=== PATIENT | female | born 1945 | race Caucasian/White ===

== ENCOUNTER 2021-01-16 10:43 | Emergency (ER) | payer OTHER ==
[~2021-01-16] VITALS: Ht 160 cm; Wt 77.1 kg
[2021-01-16] MEDS ORDERED: SODIUM CHLORIDE 0.9% 500 ML IVB ONE (11:00)
[2021-01-16 11:05] LABS: Basophils # (auto) 0.1 10 ^3/uL (0-0.2); Basophils % (auto) 1.2 % (0.0-2.0); Eosinophils # (auto) 0.3 10 ^3/uL (0-0.8); Eosinophils % (auto) 2.7 % (0.0-7.0); Hematocrit 41.2 % (36.0-46.0); Hemoglobin 14.2 g/dL (12.2-16.2); Lymphocytes # (auto) 1.7 10 ^3/uL (0.4-5.4); Mean Corpuscular Hemoglobin 31.3 pg (28.0-32.0); Mean Corpuscular Hgb Conc. 34.5 g/dL (32.0-36.0); Mean Corpuscular Volume 90.8 fL (80.0-100.0); Monocytes # (auto) 0.6 10 ^3/uL (0-1.3); Neutrophils # (auto) 7.9 10 ^3/uL (1.6-8.6); Neutrophils % (auto) 74.1 % (37.0-80.0); Nucleated Red Blood Cells % 0.1 %; Platelet Count (auto) 322 10^3/uL (140-450); Red Blood Cells 4.54 10^6/uL (4.0-5.20); Red Cell Distribution Width 14.4 % (11.8-14.3); White Blood Cell 10.7 10^3/uL (4.4-10.8)
[2021-01-16 11:22] LABS: Albumin 3.6 g/dL (3.4-5.0); Anion Gap 14 (5-15); Blood Alcohol < 3.0 mg/dL (0-5); Blood Urea Nitrogen 18 mg/dL (7-18); Calcium 8.9 mg/dL (8.5-10.1); Carbon Dioxide 18 mmol/L (21-32); Chloride 106 mmol/L (98-107); Glucose 205 mg/dL (74-106); Magnesium 1.8 mg/dL (1.6-2.6); Potassium 3.5 mmol/L (3.5-5.1); Sodium 138 mmol/L (136-145)
[2021-01-16 11:27] LABS: Alanine Aminotransferase 13 U/L (13-56); Alkaline Phosphatase 67 U/L (45-117); Aspartate Aminotransferase 14 U/L (15-37); BUN/Creatinine Ratio 21.4; Bilirubin, Total 0.4 mg/dL (0.2-1.0); GFR African American 85 mL/min; GFR Non-African American 70 mL/min; Total Protein 7.3 g/dL (6.4-8.2)
[2021-01-16 13:08] LABS: Urine Bacteria NONE SEEN /hpf (None Seen); Urine Blood Negative /uL (Negative); Urine Specific Gravity 1.027 (1.001-1.035); Urine WBC 22 /hpf (0 - 5)
[2021-01-16 13:26] LABS: Alcohol, Urine < 3.0 mg/dL (0-10); Amphetamine Screen, Urine NEGATIVE (NEGATIVE); Barbiturate Scree,Urine NEGATIVE (NEGATIVE); Benzodiazephine Screen, Urine NEGATIVE (NEGATIVE); Cannabinoid Screen, Urine NEGATIVE (NEGATIVE); Cocaine Screen, Urine NEGATIVE (NEGATIVE); Opiate Scree,Urine POSITIVE (NEGATIVE); Phencyclidine Screen, Urine NEGATIVE (NEGATIVE)
[2021-01-16] MEDS ORDERED: PIOG1TAB36 PO (13:31)
[2021-01-16] MEDS ORDERED: SIMV-13 PO (13:31)
[2021-01-16] MEDS ORDERED: VENL150C58 PO (13:31)
[2021-01-16] MEDS ORDERED: VENL75CA78 PO (13:31)
[2021-01-16] MEDS ORDERED: HYDR-4072 (13:31)
[2021-01-16] MEDS ORDERED: GABA400C11 PO (13:31)
[2021-01-16] MEDS ORDERED: SITA100T7 PO (13:31)
[2021-01-16] MEDS ORDERED: AMLO-496 PO (13:31)
[2021-01-16] MEDS ORDERED: HYDR12.55 PO (13:31)
[2021-01-16] MEDS ORDERED: METF-372 PO (13:31)
[2021-01-16] MEDS ORDERED: CIPR500T4 PO (13:31)
[2021-01-16 14:40] VITALS: BP 155/87
== END 2021-01-16 15:10 | disposition home or self-care (01) ==
LOC: EDBD 10:43 → ER 10:43
DX: R41.82 Altered mental status, unspecified (principal); N39.0 Urinary tract infection, site not specified; I10 Essential (primary) hypertension; E11.9 Type 2 diabetes mellitus without complications; I25.2 Old myocardial infarction; Z90.49 Acquired absence of other specified parts of digestive tract; Z90.710 Acquired absence of both cervix and uterus
CPT/HCPCS: 36415; 70450; 71045; 80053; 80307; 80320; 81001; 83735; 84484; 85025; 93005; 96360; 96361; 99285; J7040

== ENCOUNTER 2022-08-09 11:06 | Inpatient (IN) | payer OTHER ==
[~2022-08-09] VITALS: Ht 157.5 cm; Wt 93.5 kg
[~2022-08-09 11:06] MED LIST: AMLO-496 PO; CIPR500T4 PO; GABA400C11 PO; HYDR-4072; HYDR12.55 PO; METF-372 PO; PIOG1TAB36 PO; SIMV-13 PO; SITA100T7 PO; VENL150C58 PO; VENL75CA78 PO
[2022-08-09 12:08] LABS: Basophils # (auto) 0.1 10 ^3/uL (0-0.2); Basophils % (auto) 0.6 % (0.0-2.0); Eosinophils # (auto) 0.2 10 ^3/uL (0-0.8); Eosinophils % (auto) 1.2 % (0.0-7.0); Hematocrit 38.8 % (36.0-46.0); Hemoglobin 13.2 g/dL (12.2-16.2); Lymphocytes # (auto) 1.7 10 ^3/uL (0.4-5.4); Lymphocytes % (auto) 8.3 % (10.0-50.0); Mean Corpuscular Hemoglobin 31.9 pg (28.0-32.0); Mean Corpuscular Hgb Conc. 34.1 g/dL (32.0-36.0); Mean Corpuscular Volume 93.7 fL (80.0-100.0); Monocytes # (auto) 1.2 10 ^3/uL (0-1.3); Monocytes % (auto) 5.9 % (0.0-12.0); Neutrophils # (auto) 17.3 10 ^3/uL (1.6-8.6); Nucleated Red Blood Cells % 0.1 %; Red Blood Cells 4.14 10^6/uL (4.0-5.20); Red Cell Distribution Width 13.6 % (11.8-14.3); White Blood Cell 20.5 10^3/uL (4.4-10.8)
[2022-08-09 12:09] LABS: Albumin 3.5 g/dL (3.4-5.0); Calcium 8.9 mg/dL (8.5-10.1); Potassium 4.3 mmol/L (3.5-5.1)
[2022-08-09 12:12] LABS: Bilirubin, Total 0.6 mg/dL (0.2-1.0); Total Protein 6.4 g/dL (6.4-8.2)
[2022-08-09 12:21] LABS: INR 0.99 (0.9-1.15); Partial Thromboplastin Time 27.3 sec (24.6-33.4)
[2022-08-09] MEDS ORDERED: MORPHINE SULFATE 4 MG/ML SYR/VIAL IV ONE (13:45)
[2022-08-09] MEDS ORDERED: ONDANSETRON HCL 4 MG/2 ML VIAL IV ONE (13:45)
[2022-08-09] MEDS ORDERED: DEXTROSE (50%) 50ML SYRG IV PRN (17:00)
[2022-08-09] MEDS ORDERED: ONDANSETRON HCL 4 MG/2 ML VIAL IV PRN (17:00)
[2022-08-09] MEDS ORDERED: DOCUSATE SOD 100 MG CAP PO PRN (17:00)
[2022-08-09] MEDS: ACCU-CHEK COMFORT CURVE STRIP VI SCH ×2 (17:46→21:58)
[2022-08-09] MEDS: InsuLIN REG 1unit/0.01ml Soln (100units/ml) SC SCH ×2 (17:59→21:58)
[2022-08-09] MEDS: SODIUM CHLORIDE 0.9% 1,000 ML IV SCH (18:20)
[2022-08-09] MEDS: MORPHINE SULFATE INJ 2 MG/ml SYRG IV PRN (20:30)
[2022-08-09 21:37] LABS: Urine Bacteria NONE SEEN /hpf (None Seen); Urine Blood Negative /uL (Negative); Urine Specific Gravity 1.027 (1.001-1.035); Urine WBC 1 /hpf (0 - 5)
[2022-08-10] VITALS (9 sets, daily range): BP systolic 119–144; BP diastolic 50–73
[2022-08-10] MEDS: MORPHINE SULFATE INJ 2 MG/ml SYRG IV PRN ×2 (02:11→11:15)
[2022-08-10 05:34] LABS: Basophils # (auto) 0.1 10 ^3/uL (0-0.2); Basophils % (auto) 0.9 % (0.0-2.0); Eosinophils # (auto) 0.1 10 ^3/uL (0-0.8); Eosinophils % (auto) 0.5 % (0.0-7.0); Hematocrit 34.9 % (36.0-46.0); Hemoglobin 11.6 g/dL (12.2-16.2); Lymphocytes # (auto) 2.3 10 ^3/uL (0.4-5.4); Lymphocytes % (auto) 13.2 % (10.0-50.0); Mean Corpuscular Hemoglobin 31.3 pg (28.0-32.0); Mean Corpuscular Hgb Conc. 33.4 g/dL (32.0-36.0); Mean Corpuscular Volume 93.7 fL (80.0-100.0); Monocytes # (auto) 1.4 10 ^3/uL (0-1.3); Monocytes % (auto) 7.9 % (0.0-12.0); Neutrophils # (auto) 13.3 10 ^3/uL (1.6-8.6); Neutrophils % (auto) 77.5 % (37.0-80.0); Red Blood Cells 3.72 10^6/uL (4.0-5.20); Red Cell Distribution Width 13.5 % (11.8-14.3); White Blood Cell 17.2 10^3/uL (4.4-10.8)
[2022-08-10 05:44] LABS: Albumin 3.2 g/dL (3.4-5.0); BUN/Creatinine Ratio 22.7; Calcium 8.3 mg/dL (8.5-10.1); Potassium 3.9 mmol/L (3.5-5.1)
[2022-08-10 05:47] LABS: Bilirubin, Total 0.6 mg/dL (0.2-1.0)
[2022-08-10] MEDS: InsuLIN REG 1unit/0.01ml Soln (100units/ml) SC SCH ×4 (06:06→22:00)
[2022-08-10] MEDS: ACCU-CHEK COMFORT CURVE STRIP VI SCH ×4 (06:06→22:00)
[2022-08-10] MEDS: levoFLOXacin 500MG 100 ML IV SCH (11:14)
[2022-08-10] MEDS: SODIUM CHLORIDE 0.9% 1,000 ML IV SCH (11:14)
[2022-08-10] MEDS: PANTOPRAZOLE 40 MG/10 ML VIAL INJ IV SCH (11:14)
[2022-08-10] MEDS: amLODIPine BESYLATE 5 MG TAB PO SCH (11:15)
[2022-08-10] MEDS ORDERED: IPRATROPIUM BROM 0.5 MG/2.5ML INH SOL NEB PRN (12:45)
[2022-08-10] MEDS ORDERED: ALBUTEROL SULF 2.5 MG/0.5ML(0.5%) NEB SOLN NEB PRN (12:45)
[2022-08-10] MEDS: LORazepam 2MG/ML-1ML VIAL IV PRN (14:13)
[2022-08-10] MEDS: HYDROmorphone HCL 2 MG/ML VL/or syr IV PRN ×2 (14:19→18:58)
[2022-08-10 14:47] LABS: Cholesterol 138 mg/dL (< 200); HDL Cholesterol 54 mg/dL (40-59); LDL Cholesterol 73 mg/dL (< 100); Triglycerides 140 mg/dL (< 150)
[2022-08-10] MEDS ORDERED: ACE650RS PR (16:29)
[2022-08-10] MEDS ORDERED: GLIM4TAB42 PO (16:29)
[2022-08-10] MEDS ORDERED: OXYB5TAB61 PO (16:29)
[2022-08-10] MEDS ORDERED: PIO30T PO (16:29)
[2022-08-10] MEDS ORDERED: CHOL20007 PO (16:29)
[2022-08-10] MEDS ORDERED: HYDR-3682 PO (16:29)
[2022-08-10] MEDS ORDERED: AMIO200T33 PO (16:29)
[2022-08-10] MEDS ORDERED: LEVO137T3 PO (16:29)
[2022-08-10] MEDS ORDERED: APIX5TAB PO (16:29)
[2022-08-10] MEDS ORDERED: MELO1TAB56 PO (16:29)
[2022-08-10] MEDS ORDERED: ACET-1079 PO (16:29)
[2022-08-10] MEDS ORDERED: [UNRECOGNIZED DRUG - CODE] PO (16:33)
[2022-08-11] VITALS (14 sets, daily range): BP systolic 121–166; BP diastolic 46–96
[2022-08-11] MEDS: SODIUM CHLORIDE 0.9% 1,000 ML IV SCH ×2 (00:30→11:27)
[2022-08-11] MEDS: HYDROmorphone HCL 2 MG/ML VL/or syr IV PRN ×2 (02:16→17:17)
[2022-08-11] MEDS: ACCU-CHEK COMFORT CURVE STRIP VI SCH ×4 (06:15→22:27)
[2022-08-11] MEDS: InsuLIN REG 1unit/0.01ml Soln (100units/ml) SC SCH ×4 (06:15→22:27)
[2022-08-11] MEDS ORDERED: ceFAZolin 1GM/50ML 100 ML IV ONE (09:46)
[2022-08-11] MEDS: PANTOPRAZOLE 40 MG/10 ML VIAL INJ IV SCH (09:51)
[2022-08-11] MEDS: amLODIPine BESYLATE 5 MG TAB PO SCH (09:51)
[2022-08-11] MEDS: levoFLOXacin 500MG 100 ML IV SCH (09:51)
[2022-08-11] MEDS ORDERED: TRANEXAMIC ACID 20 ML ONE (10:37)
[2022-08-11] MEDS ORDERED: BUPIVACAINE 0.5% P/F INJ 10 ML VIAL ONE (10:38)
[2022-08-11] MEDS ORDERED: MIDAZOLAM HCL 2MG/2ML 2ml VIAL (1mg/ml) ONE (11:10)
[2022-08-11] MEDS ORDERED: fentaNYL CITRATE 100 MCG/2 ML VL ONE (11:10)
[2022-08-11] MEDS ORDERED: VANCOMYCIN HCL 1000 MG VL ONE (12:36)
[2022-08-11] MEDS ORDERED: DexAMETHasone SOD PHOS 10MG/1ML VIAL INJ IV PRN (12:45)
[2022-08-11] MEDS ORDERED: NALOXONE HCL 0.4 MG/ML VIAL IV PRN (12:45)
[2022-08-11] MEDS ORDERED: NALBUPHINE HCL 10 MG/1ml INJECTION SUBCUT ONE (12:45)
[2022-08-11] MEDS ORDERED: HYDROmorphone HCL 2 MG/ML VL/or syr IV PRN (12:45)
[2022-08-11] MEDS ORDERED: ONDANSETRON HCL 4 MG/2 ML VIAL IV PRN (12:45)
[2022-08-11] MEDS ORDERED: PROPOFOL 10 MG/ML 20 ML IV ONE (13:14)
[2022-08-11] MEDS: ceFAZolin 2 GM in D5W 5% 100 ML IV SCH ×2 (14:00→22:23)
[2022-08-12] VITALS (19 sets, daily range): BP systolic 118–183; BP diastolic 58–82
[2022-08-12] MEDS: SODIUM CHLORIDE 0.9% 1,000 ML IV SCH (03:00)
[2022-08-12] MEDS: ceFAZolin 2 GM in D5W 5% 100 ML IV SCH (05:43)
[2022-08-12] MEDS: InsuLIN REG 1unit/0.01ml Soln (100units/ml) SC SCH ×4 (06:12→22:09)
[2022-08-12] MEDS: ACCU-CHEK COMFORT CURVE STRIP VI SCH ×4 (06:14→22:11)
[2022-08-12 07:43] LABS: Basophils # (auto) 0.1 10 ^3/uL (0-0.2); Basophils % (auto) 0.5 % (0.0-2.0); Eosinophils # (auto) 0.1 10 ^3/uL (0-0.8); Eosinophils % (auto) 0.4 % (0.0-7.0); Hematocrit 29.1 % (36.0-46.0); Hemoglobin 9.6 g/dL (12.2-16.2); Lymphocytes # (auto) 1.8 10 ^3/uL (0.4-5.4); Lymphocytes % (auto) 9.7 % (10.0-50.0); Mean Corpuscular Hemoglobin 31.2 pg (28.0-32.0); Mean Corpuscular Volume 94.8 fL (80.0-100.0); Monocytes # (auto) 1.3 10 ^3/uL (0-1.3); Monocytes % (auto) 6.9 % (0.0-12.0); Neutrophils # (auto) 15.6 10 ^3/uL (1.6-8.6); Neutrophils % (auto) 82.5 % (37.0-80.0); Red Blood Cells 3.07 10^6/uL (4.0-5.20); Red Cell Distribution Width 13.7 % (11.8-14.3); White Blood Cell 18.9 10^3/uL (4.4-10.8)
[2022-08-12 07:59] LABS: Albumin 2.7 g/dL (3.4-5.0); Calcium 8.6 mg/dL (8.5-10.1); Magnesium 1.7 mg/dL (1.6-2.6); Potassium 4.1 mmol/L (3.5-5.1)
[2022-08-12 08:04] LABS: Bilirubin, Total 0.8 mg/dL (0.2-1.0); Total Protein 5.7 g/dL (6.4-8.2)
[2022-08-12] MEDS: amLODIPine BESYLATE 5 MG TAB PO SCH (10:02)
[2022-08-12] MEDS: PANTOPRAZOLE 40 MG/10 ML VIAL INJ IV SCH (10:02)
[2022-08-12] MEDS: levoFLOXacin 500MG 100 ML IV SCH (10:03)
[2022-08-12] MEDS: HYDROmorphone HCL 2 MG/ML VL/or syr IV PRN ×3 (10:03→20:47)
[2022-08-12] MEDS ORDERED: ENOXAPARIN SOD 40 MG/0.4 ML SYRINGE SC ONE (11:15)
[2022-08-12] MEDS: HYDROcodone-ACET 5/325MG TAB PO PRN ×2 (13:25→23:54)
[2022-08-12] MEDS: DOCUSATE SOD 100 MG CAP PO SCH (22:04)
[2022-08-13] MEDS: HYDROmorphone HCL 2 MG/ML VL/or syr IV PRN ×3 (03:05→17:59)
[2022-08-13 05:04] VITALS: BP 136/62
[2022-08-13] MEDS: HYDROcodone-ACET 5/325MG TAB PO PRN ×2 (06:35→13:12)
[2022-08-13] MEDS: ACCU-CHEK COMFORT CURVE STRIP VI SCH ×4 (06:39→21:12)
[2022-08-13] MEDS: InsuLIN REG 1unit/0.01ml Soln (100units/ml) SC SCH ×4 (06:43→21:01)
[2022-08-13 06:44] LABS: Basophils # (auto) 0.1 10 ^3/uL (0-0.2); Basophils % (auto) 0.7 % (0.0-2.0); Eosinophils # (auto) 0.3 10 ^3/uL (0-0.8); Hematocrit 30.5 % (36.0-46.0); Hemoglobin 10.2 g/dL (12.2-16.2); Lymphocytes % (auto) 12.2 % (10.0-50.0); Mean Corpuscular Hemoglobin 31.6 pg (28.0-32.0); Mean Corpuscular Hgb Conc. 33.3 g/dL (32.0-36.0); Monocytes # (auto) 1.2 10 ^3/uL (0-1.3); Monocytes % (auto) 7.2 % (0.0-12.0); Neutrophils # (auto) 12.7 10 ^3/uL (1.6-8.6); Neutrophils % (auto) 77.9 % (37.0-80.0); Red Blood Cells 3.21 10^6/uL (4.0-5.20); Red Cell Distribution Width 13.7 % (11.8-14.3); White Blood Cell 16.3 10^3/uL (4.4-10.8)
[2022-08-13 07:12] LABS: Potassium 3.9 mmol/L (3.5-5.1)
[2022-08-13 07:15] LABS: BUN/Creatinine Ratio 15.8; Calcium 9.2 mg/dL (8.5-10.1)
[2022-08-13 09:24] VITALS: BP 142/50
[2022-08-13] MEDS ORDERED: LEVOTHYROXINE SODIUM 25 MCG TAB PO ONE (09:30)
[2022-08-13] MEDS ORDERED: GLIMEPIRIDE 2 MG TAB PO ONE (09:30)
[2022-08-13] MEDS ORDERED: metFORMIN HYDROCHLORIDE 500 MG TAB PO ONE (09:30)
[2022-08-13] MEDS: PANTOPRAZOLE 40 MG/10 ML VIAL INJ IV SCH (09:53)
[2022-08-13] MEDS: HCTZ 25 MG TAB PO SCH (09:55)
[2022-08-13] MEDS: DOCUSATE SOD 100 MG CAP PO SCH ×2 (09:56→21:11)
[2022-08-13] MEDS: LEVOTHYROXINE SODIUM 112 MCG TAB PO SCH (09:56)
[2022-08-13] MEDS: AMIODARONE HCL 200 MG TAB PO SCH (09:56)
[2022-08-13] MEDS: amLODIPine BESYLATE 5 MG TAB PO SCH (09:56)
[2022-08-13] MEDS: APIXABAN 5 MG TAB PO SCH ×2 (09:57→21:11)
[2022-08-13] MEDS: LEVOTHYROXINE SODIUM 25 MCG TAB PO SCH (09:57)
[2022-08-13] MEDS: VENLAFAXINE HCL 37.5mg XR cap PO SCH ×2 (09:57→21:11)
[2022-08-13] MEDS ORDERED: ENOXAPARIN SOD 40 MG/0.4 ML SYRINGE SC SCH (10:00)
[2022-08-13] MEDS ORDERED: LACTULOSE 20Gm/30ML SOLN PO ONE (11:00)
[2022-08-13 12:32] VITALS: BP 141/77
[2022-08-13] MEDS: LORazepam 2MG/ML-1ML VIAL IV PRN (13:12)
[2022-08-13] MEDS: GABAPENTIN 300 MG CAP PO SCH ×2 (13:13→21:12)
[2022-08-13 14:49] LABS: Hepatitis C Antibody Negative (Negative)
[2022-08-13 16:54] VITALS: BP 166/59
[2022-08-13] MEDS: metFORMIN HYDROCHLORIDE 500 MG TAB PO SCH (17:58)
[2022-08-13] MEDS: ATORVASTATIN 20 MG TAB PO SCH (21:11)
[2022-08-13 22:00] VITALS: BP_SYST 102; BP_DIAS 117; BP_DIAS 49
[2022-08-14 05:00] VITALS: BP 147/69
[2022-08-14] MEDS: GABAPENTIN 300 MG CAP PO SCH ×3 (06:24→21:41)
[2022-08-14] MEDS: GLIMEPIRIDE 2 MG TAB PO SCH (06:25)
[2022-08-14] MEDS: LEVOTHYROXINE SODIUM 112 MCG TAB PO SCH (06:25)
[2022-08-14] MEDS: InsuLIN REG 1unit/0.01ml Soln (100units/ml) SC SCH ×4 (06:25→21:49)
[2022-08-14] MEDS: ACCU-CHEK COMFORT CURVE STRIP VI SCH ×4 (06:26→21:49)
[2022-08-14] MEDS: LEVOTHYROXINE SODIUM 25 MCG TAB PO SCH (06:26)
[2022-08-14] MEDS ORDERED: LEVOTHYROXINE SODIUM 25 MCG TAB PO SCH (07:00)
[2022-08-14] MEDS: metFORMIN HYDROCHLORIDE 500 MG TAB PO SCH ×2 (08:10→16:53)
[2022-08-14] MEDS: VENLAFAXINE HCL 37.5mg XR cap PO SCH ×2 (08:11→21:41)
[2022-08-14] MEDS: AMIODARONE HCL 200 MG TAB PO SCH (08:11)
[2022-08-14] MEDS: APIXABAN 5 MG TAB PO SCH ×2 (08:11→21:41)
[2022-08-14] MEDS: DOCUSATE SOD 100 MG CAP PO SCH ×2 (08:11→21:41)
[2022-08-14] MEDS: PANTOPRAZOLE 40 MG/10 ML VIAL INJ IV SCH (08:11)
[2022-08-14] MEDS: HCTZ 25 MG TAB PO SCH (08:12)
[2022-08-14] MEDS: amLODIPine BESYLATE 5 MG TAB PO SCH (08:12)
[2022-08-14 09:00] VITALS: BP 139/53
[2022-08-14] MEDS ORDERED: FUROSEMIDE 40 MG/4 ML VIAL IV ONE (10:00)
[2022-08-14] MEDS: HYDROmorphone HCL 2 MG/ML VL/or syr IV PRN (10:48)
[2022-08-14 13:00] VITALS: BP 130/54
[2022-08-14] MEDS: HYDROcodone-ACET 5/325MG TAB PO PRN (13:27)
[2022-08-14 16:52] VITALS: BP 140/66
[2022-08-14] MEDS: FUROSEMIDE 40 MG/4 ML VIAL IV SCH (16:53)
[2022-08-14] MEDS: ATORVASTATIN 20 MG TAB PO SCH (21:41)
[2022-08-14 22:00] VITALS: BP 144/51
[2022-08-15] MEDS: HYDROmorphone HCL 2 MG/ML VL/or syr IV PRN ×2 (03:19→19:41)
[2022-08-15 04:50] VITALS: BP 139/58
[2022-08-15] MEDS: GABAPENTIN 300 MG CAP PO SCH ×3 (05:38→22:07)
[2022-08-15] MEDS: FUROSEMIDE 40 MG/4 ML VIAL IV SCH ×2 (05:38→17:22)
[2022-08-15 06:17] LABS: Basophils # (auto) 0.1 10 ^3/uL (0-0.2); Basophils % (auto) 0.6 % (0.0-2.0); Eosinophils # (auto) 0.3 10 ^3/uL (0-0.8); Eosinophils % (auto) 1.5 % (0.0-7.0); Hematocrit 29.3 % (36.0-46.0); Lymphocytes # (auto) 2.2 10 ^3/uL (0.4-5.4); Lymphocytes % (auto) 11.9 % (10.0-50.0); Mean Corpuscular Hemoglobin 32.5 pg (28.0-32.0); Mean Corpuscular Volume 95.5 fL (80.0-100.0); Monocytes # (auto) 1.6 10 ^3/uL (0-1.3); Monocytes % (auto) 8.5 % (0.0-12.0); Neutrophils # (auto) 14.1 10 ^3/uL (1.6-8.6); Neutrophils % (auto) 77.5 % (37.0-80.0); Red Blood Cells 3.07 10^6/uL (4.0-5.20); Red Cell Distribution Width 13.6 % (11.8-14.3); White Blood Cell 18.3 10^3/uL (4.4-10.8)
[2022-08-15 06:34] LABS: Anion Gap 8 (5-15); Blood Urea Nitrogen 25 mg/dL (7-18); Carbon Dioxide 28 mmol/L (21-32); Chloride 100 mmol/L (98-107); Glucose 193 mg/dL (74-106); Potassium 3.4 mmol/L (3.5-5.1); Sodium 136 mmol/L (136-145)
[2022-08-15 06:37] LABS: BUN/Creatinine Ratio 30.9; Calcium 8.7 mg/dL (8.5-10.1); GFR African American 88 mL/min; GFR Non-African American 73 mL/min; Magnesium 1.7 mg/dL (1.6-2.6)
[2022-08-15] MEDS: GLIMEPIRIDE 2 MG TAB PO SCH (06:47)
[2022-08-15] MEDS: LEVOTHYROXINE SODIUM 25 MCG TAB PO SCH (06:48)
[2022-08-15] MEDS: ACCU-CHEK COMFORT CURVE STRIP VI SCH ×4 (06:48→22:08)
[2022-08-15] MEDS: LEVOTHYROXINE SODIUM 112 MCG TAB PO SCH (06:48)
[2022-08-15] MEDS: InsuLIN REG 1unit/0.01ml Soln (100units/ml) SC SCH ×4 (06:49→22:12)
[2022-08-15 09:00] VITALS: BP 137/53
[2022-08-15] MEDS: PANTOPRAZOLE 40 MG/10 ML VIAL INJ IV SCH (09:04)
[2022-08-15] MEDS: metFORMIN HYDROCHLORIDE 500 MG TAB PO SCH ×2 (09:04→17:20)
[2022-08-15] MEDS: APIXABAN 5 MG TAB PO SCH ×2 (09:05→22:07)
[2022-08-15] MEDS: AMIODARONE HCL 200 MG TAB PO SCH (09:05)
[2022-08-15] MEDS: DOCUSATE SOD 100 MG CAP PO SCH ×2 (09:05→22:07)
[2022-08-15] MEDS: VENLAFAXINE HCL 37.5mg XR cap PO SCH ×2 (09:05→22:08)
[2022-08-15] MEDS: amLODIPine BESYLATE 5 MG TAB PO SCH (09:06)
[2022-08-15] MEDS: HCTZ 25 MG TAB PO SCH (09:07)
[2022-08-15] MEDS ORDERED: POTASSIUM CHL 20 Meq TABLET PO ONE (12:45)
[2022-08-15 13:00] VITALS: BP 155/61
[2022-08-15] MEDS ORDERED: LACTULOSE 20Gm/30ML SOLN PO ONE (14:00)
[2022-08-15] MEDS: HYDROcodone-ACET 5/325MG TAB PO PRN (14:10)
[2022-08-15 17:00] VITALS: BP 150/62
[2022-08-15 22:00] VITALS: BP 128/64
[2022-08-15] MEDS: ATORVASTATIN 20 MG TAB PO SCH (22:07)
[2022-08-16 05:00] VITALS: BP_SYST 141; BP_SYST 97; BP_DIAS 50; BP_DIAS 66
[2022-08-16] MEDS: FUROSEMIDE 40 MG/4 ML VIAL IV SCH ×2 (05:55→18:11)
[2022-08-16] MEDS: GABAPENTIN 300 MG CAP PO SCH ×3 (05:55→22:56)
[2022-08-16] MEDS: LEVOTHYROXINE SODIUM 112 MCG TAB PO SCH (06:31)
[2022-08-16] MEDS: LEVOTHYROXINE SODIUM 25 MCG TAB PO SCH (06:31)
[2022-08-16] MEDS: ACCU-CHEK COMFORT CURVE STRIP VI SCH ×4 (06:32→22:56)
[2022-08-16] MEDS: InsuLIN REG 1unit/0.01ml Soln (100units/ml) SC SCH ×4 (06:35→23:04)
[2022-08-16] MEDS: GLIMEPIRIDE 2 MG TAB PO SCH (06:39)
[2022-08-16 07:34] LABS: BUN/Creatinine Ratio 33.7; Calcium 8.5 mg/dL (8.5-10.1); Potassium 3.9 mmol/L (3.5-5.1)
[2022-08-16 07:35] LABS: Basophils # (auto) 0.1 10 ^3/uL (0-0.2); Basophils % (auto) 0.7 % (0.0-2.0); Eosinophils # (auto) 0.2 10 ^3/uL (0-0.8); Eosinophils % (auto) 1.3 % (0.0-7.0); Hematocrit 30.1 % (36.0-46.0); Hemoglobin 10.3 g/dL (12.2-16.2); Lymphocytes # (auto) 1.8 10 ^3/uL (0.4-5.4); Lymphocytes % (auto) 9.8 % (10.0-50.0); Mean Corpuscular Hgb Conc. 34.2 g/dL (32.0-36.0); Mean Corpuscular Volume 93.5 fL (80.0-100.0); Monocytes # (auto) 1.2 10 ^3/uL (0-1.3); Monocytes % (auto) 6.4 % (0.0-12.0); Neutrophils # (auto) 15.2 10 ^3/uL (1.6-8.6); Neutrophils % (auto) 81.8 % (37.0-80.0); Nucleated Red Blood Cells % 0.1 %; Red Blood Cells 3.22 10^6/uL (4.0-5.20); Red Cell Distribution Width 13.5 % (11.8-14.3); White Blood Cell 18.5 10^3/uL (4.4-10.8)
[2022-08-16 08:35] VITALS: BP 133/58
[2022-08-16] MEDS: metFORMIN HYDROCHLORIDE 500 MG TAB PO SCH ×2 (08:40→18:09)
[2022-08-16] MEDS: PANTOPRAZOLE 40 MG/10 ML VIAL INJ IV SCH (10:36)
[2022-08-16] MEDS: DOCUSATE SOD 100 MG CAP PO SCH ×2 (10:36→22:56)
[2022-08-16] MEDS: VENLAFAXINE HCL 37.5mg XR cap PO SCH ×2 (10:37→22:56)
[2022-08-16] MEDS: AMIODARONE HCL 200 MG TAB PO SCH (10:37)
[2022-08-16] MEDS: APIXABAN 5 MG TAB PO SCH ×2 (10:37→22:56)
[2022-08-16] MEDS: HCTZ 25 MG TAB PO SCH (10:38)
[2022-08-16] MEDS: amLODIPine BESYLATE 5 MG TAB PO SCH (10:39)
[2022-08-16] MEDS: HYDROmorphone HCL 2 MG/ML VL/or syr IV PRN ×3 (10:49→22:57)
[2022-08-16] MEDS ORDERED: LACTULOSE 20Gm/30ML SOLN PO ONE (11:15)
[2022-08-16 12:40] VITALS: BP 141/50
[2022-08-16 16:30] VITALS: BP 135/53
[2022-08-16 22:00] VITALS: BP 132/48
[2022-08-16] MEDS: ATORVASTATIN 20 MG TAB PO SCH (22:56)
[2022-08-17 05:00] VITALS: BP 127/52
[2022-08-17] MEDS: GABAPENTIN 300 MG CAP PO SCH ×3 (06:43→21:26)
[2022-08-17] MEDS: ACCU-CHEK COMFORT CURVE STRIP VI SCH ×4 (06:43→21:26)
[2022-08-17] MEDS: FUROSEMIDE 40 MG/4 ML VIAL IV SCH ×2 (06:43→17:22)
[2022-08-17] MEDS: LEVOTHYROXINE SODIUM 112 MCG TAB PO SCH (06:43)
[2022-08-17] MEDS: LEVOTHYROXINE SODIUM 25 MCG TAB PO SCH (06:43)
[2022-08-17] MEDS: InsuLIN REG 1unit/0.01ml Soln (100units/ml) SC SCH ×4 (06:44→21:33)
[2022-08-17] MEDS: GLIMEPIRIDE 2 MG TAB PO SCH (07:03)
[2022-08-17 09:00] VITALS: BP 146/54
[2022-08-17] MEDS: PANTOPRAZOLE 40 MG/10 ML VIAL INJ IV SCH (09:12)
[2022-08-17] MEDS: AMIODARONE HCL 200 MG TAB PO SCH (09:13)
[2022-08-17] MEDS: DOCUSATE SOD 100 MG CAP PO SCH ×2 (09:13→21:26)
[2022-08-17] MEDS: metFORMIN HYDROCHLORIDE 500 MG TAB PO SCH ×2 (09:13→17:22)
[2022-08-17] MEDS: APIXABAN 5 MG TAB PO SCH ×2 (09:13→21:26)
[2022-08-17] MEDS: VENLAFAXINE HCL 37.5mg XR cap PO SCH ×2 (09:13→21:26)
[2022-08-17] MEDS: amLODIPine BESYLATE 5 MG TAB PO SCH (09:14)
[2022-08-17] MEDS: HYDROcodone-ACET 5/325MG TAB PO PRN (09:15)
[2022-08-17] MEDS: HCTZ 25 MG TAB PO SCH (09:15)
[2022-08-17 13:00] VITALS: BP 120/54
[2022-08-17] MEDS: ATORVASTATIN 20 MG TAB PO SCH (21:26)
[2022-08-17] MEDS: HYDROmorphone HCL 2 MG/ML VL/or syr IV PRN (21:27)
[2022-08-17 23:11] VITALS: BP 141/65
[2022-08-17 23:13] VITALS: BP 141/65
[2022-08-18] MEDS: HYDROcodone-ACET 5/325MG TAB PO PRN (02:39)
[2022-08-18 05:15] VITALS: BP 126/49
[2022-08-18 06:21] LABS: Hematocrit 28.4 % (36.0-46.0); Hemoglobin 9.8 g/dL (12.2-16.2); Mean Corpuscular Hemoglobin 31.5 pg (28.0-32.0); Mean Corpuscular Hgb Conc. 34.5 g/dL (32.0-36.0); Mean Corpuscular Volume 91.4 fL (80.0-100.0); Red Blood Cells 3.11 10^6/uL (4.0-5.20); Red Cell Distribution Width 13.5 % (11.8-14.3); White Blood Cell 20.3 10^3/uL (4.4-10.8)
[2022-08-18 06:47] LABS: BUN/Creatinine Ratio 40.3; Calcium 8.3 mg/dL (8.5-10.1); Magnesium 1.3 mg/dL (1.6-2.6)
[2022-08-18] MEDS: LEVOTHYROXINE SODIUM 25 MCG TAB PO SCH (06:47)
[2022-08-18] MEDS: GABAPENTIN 300 MG CAP PO SCH ×3 (06:47→22:35)
[2022-08-18] MEDS: LEVOTHYROXINE SODIUM 112 MCG TAB PO SCH (06:47)
[2022-08-18] MEDS: FUROSEMIDE 40 MG/4 ML VIAL IV SCH ×2 (06:48→17:30)
[2022-08-18] MEDS: ACCU-CHEK COMFORT CURVE STRIP VI SCH ×4 (06:48→22:35)
[2022-08-18 06:50] LABS: Basophils % (manual) 0 (0.0-2.0); Blast Cells 0; Eosinophils % (manual) 0 (0-7); Myelocytes % 0; Promyelocytes % 0; Reactive Lymphocytes 0
[2022-08-18] MEDS: InsuLIN REG 1unit/0.01ml Soln (100units/ml) SC SCH ×4 (06:54→22:41)
[2022-08-18] MEDS: GLIMEPIRIDE 2 MG TAB PO SCH (06:57)
[2022-08-18] MEDS: HYDROmorphone HCL 2 MG/ML VL/or syr IV PRN (06:58)
[2022-08-18 07:05] LABS: Potassium 2.9 mmol/L (3.5-5.1)
[2022-08-18] MEDS: metFORMIN HYDROCHLORIDE 500 MG TAB PO SCH ×2 (08:24→17:30)
[2022-08-18 08:44] VITALS: BP 119/49
[2022-08-18] MEDS: HCTZ 25 MG TAB PO SCH (10:00)
[2022-08-18] MEDS: amLODIPine BESYLATE 5 MG TAB PO SCH (10:00)
[2022-08-18] MEDS: DOCUSATE SOD 100 MG CAP PO SCH ×2 (10:22→22:35)
[2022-08-18] MEDS: APIXABAN 5 MG TAB PO SCH ×2 (10:22→22:34)
[2022-08-18] MEDS: PANTOPRAZOLE 40 MG/10 ML VIAL INJ IV SCH (10:23)
[2022-08-18] MEDS: AMIODARONE HCL 200 MG TAB PO SCH (10:23)
[2022-08-18] MEDS: VENLAFAXINE HCL 37.5mg XR cap PO SCH ×2 (10:23→22:35)
[2022-08-18] MEDS ORDERED: POTASSIUM CHL 20 Meq TABLET PO ONE (10:30)
[2022-08-18 11:39] LABS: Band Neutrophils % (manual) 1; Lymphocytes % (manual) 8 (10.0-50.0); Metamyelocytes % 1; Monocytes % (manual) 11 (0-12)
[2022-08-18] MEDS ORDERED: cefTRIAXone 1GM/50ML D5W 50 ML IV ONE (12:15)
[2022-08-18 13:00] VITALS: BP 142/58
[2022-08-18 14:46] LABS: Urine Bacteria FEW /hpf (None Seen); Urine Blood 1+ /uL (Negative); Urine Hyaline Cast FEW /lpf (0 - 2); Urine Mucus FEW (None Seen); Urine Specific Gravity 1.012 (1.001-1.035); Urine WBC 3 /hpf (0 - 5)
[2022-08-18] MEDS: ACETAMINOPHEN 325 MG TAB PO PRN (16:41)
[2022-08-18 17:00] VITALS: BP 122/52
[2022-08-18 22:00] VITALS: BP 120/59
[2022-08-18] MEDS: ATORVASTATIN 20 MG TAB PO SCH (22:34)
[2022-08-19] MEDS: ACETAMINOPHEN 325 MG TAB PO PRN ×2 (04:04→10:18)
[2022-08-19 05:53] VITALS: BP 132/47
[2022-08-19] MEDS: LEVOTHYROXINE SODIUM 112 MCG TAB PO SCH (06:52)
[2022-08-19] MEDS: GABAPENTIN 300 MG CAP PO SCH ×3 (06:53→21:33)
[2022-08-19] MEDS: LEVOTHYROXINE SODIUM 25 MCG TAB PO SCH (06:53)
[2022-08-19] MEDS: FUROSEMIDE 40 MG/4 ML VIAL IV SCH ×2 (06:55→17:58)
[2022-08-19] MEDS: InsuLIN REG 1unit/0.01ml Soln (100units/ml) SC SCH ×4 (07:00→21:55)
[2022-08-19] MEDS: GLIMEPIRIDE 2 MG TAB PO SCH (07:02)
[2022-08-19] MEDS: ACCU-CHEK COMFORT CURVE STRIP VI SCH ×4 (07:03→21:54)
[2022-08-19 07:48] LABS: BUN/Creatinine Ratio 38.6; Calcium 8.5 mg/dL (8.5-10.1); Magnesium 1.5 mg/dL (1.6-2.6)
[2022-08-19 08:00] VITALS: BP 140/56
[2022-08-19 08:23] LABS: Potassium 2.9 mmol/L (3.5-5.1)
[2022-08-19] MEDS: AMIODARONE HCL 200 MG TAB PO SCH (08:35)
[2022-08-19] MEDS: PANTOPRAZOLE 40 MG/10 ML VIAL INJ IV SCH (08:36)
[2022-08-19] MEDS: HCTZ 25 MG TAB PO SCH (08:36)
[2022-08-19] MEDS: cefTRIAXone 1GM/50ML D5W 50 ML IV SCH (08:36)
[2022-08-19] MEDS: metFORMIN HYDROCHLORIDE 500 MG TAB PO SCH ×2 (08:36→17:57)
[2022-08-19] MEDS: APIXABAN 5 MG TAB PO SCH ×2 (08:36→21:33)
[2022-08-19] MEDS: VENLAFAXINE HCL 37.5mg XR cap PO SCH ×2 (08:36→21:34)
[2022-08-19] MEDS: DOCUSATE SOD 100 MG CAP PO SCH ×2 (08:49→21:33)
[2022-08-19 09:00] VITALS: BP 140/56
[2022-08-19] MEDS ORDERED: POTASSIUM CHL 20 Meq TABLET PO ONE (09:45)
[2022-08-19] MEDS ORDERED: ACETAMINOPHEN 325 MG TAB PO PRN (12:30)
[2022-08-19 12:38] VITALS: BP 136/45
[2022-08-19] MEDS: ALBUTEROL MEDNEB 2.5 mg/3ml NEB NEB PRN (16:02)
[2022-08-19] MEDS: IPRATROPIUM BROM 0.5 MG/2.5ML INH SOL NEB PRN (16:02)
[2022-08-19 17:24] VITALS: BP 141/57
[2022-08-19] MEDS: HYDROcodone-ACET 5/325MG TAB PO PRN (21:33)
[2022-08-19] MEDS: POTASSIUM CHL 20 Meq TABLET PO SCH (21:33)
[2022-08-19] MEDS: ATORVASTATIN 20 MG TAB PO SCH (21:34)
[2022-08-19 22:00] VITALS: BP 151/61
[2022-08-20 05:00] VITALS: BP 131/65
[2022-08-20 05:58] LABS: Hematocrit 32.6 % (36.0-46.0); Mean Corpuscular Hemoglobin 31.1 pg (28.0-32.0); Mean Corpuscular Hgb Conc. 33.6 g/dL (32.0-36.0); Mean Corpuscular Volume 92.6 fL (80.0-100.0); Red Blood Cells 3.52 10^6/uL (4.0-5.20); Red Cell Distribution Width 13.8 % (11.8-14.3); White Blood Cell 17.2 10^3/uL (4.4-10.8)
[2022-08-20 06:16] LABS: Calcium 8.6 mg/dL (8.5-10.1); Magnesium 1.5 mg/dL (1.6-2.6); Potassium 3.2 mmol/L (3.5-5.1)
[2022-08-20 06:18] LABS: BUN/Creatinine Ratio 32.8
[2022-08-20] MEDS: GABAPENTIN 300 MG CAP PO SCH ×3 (06:19→21:35)
[2022-08-20] MEDS: FUROSEMIDE 40 MG/4 ML VIAL IV SCH ×2 (06:20→18:24)
[2022-08-20 06:28] LABS: Basophils % (manual) 0 (0.0-2.0); Blast Cells 0; Myelocytes % 0; Promyelocytes % 0; Reactive Lymphocytes 0
[2022-08-20] MEDS: GLIMEPIRIDE 2 MG TAB PO SCH (07:06)
[2022-08-20] MEDS: LEVOTHYROXINE SODIUM 112 MCG TAB PO SCH (07:06)
[2022-08-20] MEDS: LEVOTHYROXINE SODIUM 25 MCG TAB PO SCH (07:07)
[2022-08-20] MEDS: ACCU-CHEK COMFORT CURVE STRIP VI SCH ×4 (07:07→21:59)
[2022-08-20] MEDS: InsuLIN REG 1unit/0.01ml Soln (100units/ml) SC SCH ×4 (07:09→22:00)
[2022-08-20 07:30] VITALS: BP 146/59
[2022-08-20 09:00] VITALS: BP 146/59
[2022-08-20] MEDS: cefTRIAXone 1GM/50ML D5W 50 ML IV SCH (09:38)
[2022-08-20] MEDS: PANTOPRAZOLE 40 MG/10 ML VIAL INJ IV SCH (09:38)
[2022-08-20] MEDS: metFORMIN HYDROCHLORIDE 500 MG TAB PO SCH ×2 (09:38→18:23)
[2022-08-20] MEDS: HYDROcodone-ACET 5/325MG TAB PO PRN ×2 (09:38→21:55)
[2022-08-20] MEDS: VENLAFAXINE HCL 37.5mg XR cap PO SCH ×2 (09:39→21:36)
[2022-08-20] MEDS: POTASSIUM CHL 20 Meq TABLET PO SCH ×2 (09:39→21:35)
[2022-08-20] MEDS: APIXABAN 5 MG TAB PO SCH ×2 (09:39→21:35)
[2022-08-20] MEDS: AMIODARONE HCL 200 MG TAB PO SCH (09:39)
[2022-08-20] MEDS: DOCUSATE SOD 100 MG CAP PO SCH ×2 (09:39→21:35)
[2022-08-20] MEDS: HCTZ 25 MG TAB PO SCH (09:41)
[2022-08-20] MEDS ORDERED: POTASSIUM CHL 20 Meq TABLET PO ONE (10:15)
[2022-08-20 10:30] VITALS: BP 146/59
[2022-08-20 10:44] LABS: Band Neutrophils % (manual) 9; Eosinophils % (manual) 1 (0-7); Lymphocytes % (manual) 11 (10.0-50.0); Metamyelocytes % 3; Monocytes % (manual) 7 (0-12)
[2022-08-20] MEDS: MAGNESIUM SULFATE 1GM/100ML 100 ML IV SCH ×2 (13:28→14:56)
[2022-08-20 16:43] VITALS: BP 137/65
[2022-08-20 20:24] VITALS: BP 130/58
[2022-08-20] MEDS: ATORVASTATIN 20 MG TAB PO SCH (21:35)
[2022-08-21 05:37] VITALS: BP_SYST 140; BP_SYST 146; BP_DIAS 60
[2022-08-21] MEDS: GABAPENTIN 300 MG CAP PO SCH ×3 (05:40→22:22)
[2022-08-21] MEDS: FUROSEMIDE 40 MG/4 ML VIAL IV SCH ×2 (05:41→18:33)
[2022-08-21] MEDS: GLIMEPIRIDE 2 MG TAB PO SCH (06:14)
[2022-08-21] MEDS: LEVOTHYROXINE SODIUM 112 MCG TAB PO SCH (06:15)
[2022-08-21] MEDS: LEVOTHYROXINE SODIUM 25 MCG TAB PO SCH (06:16)
[2022-08-21] MEDS: ACCU-CHEK COMFORT CURVE STRIP VI SCH ×4 (06:16→22:23)
[2022-08-21] MEDS: InsuLIN REG 1unit/0.01ml Soln (100units/ml) SC SCH ×4 (06:25→22:23)
[2022-08-21 06:45] LABS: Potassium 3.7 mmol/L (3.5-5.1)
[2022-08-21 06:49] LABS: BUN/Creatinine Ratio 36.7; Calcium 8.1 mg/dL (8.5-10.1)
[2022-08-21] MEDS: DOCUSATE SOD 100 MG CAP PO SCH ×2 (08:49→22:22)
[2022-08-21] MEDS: PANTOPRAZOLE 40 MG/10 ML VIAL INJ IV SCH (08:49)
[2022-08-21] MEDS: metFORMIN HYDROCHLORIDE 500 MG TAB PO SCH ×2 (08:49→18:32)
[2022-08-21] MEDS: cefTRIAXone 1GM/50ML D5W 50 ML IV SCH (08:49)
[2022-08-21] MEDS: AMIODARONE HCL 200 MG TAB PO SCH (08:49)
[2022-08-21] MEDS: POTASSIUM CHL 20 Meq TABLET PO SCH ×2 (08:50→22:22)
[2022-08-21] MEDS: APIXABAN 5 MG TAB PO SCH ×2 (08:51→22:22)
[2022-08-21] MEDS: HCTZ 25 MG TAB PO SCH (08:51)
[2022-08-21] MEDS: VENLAFAXINE HCL 37.5mg XR cap PO SCH ×2 (08:52→22:22)
[2022-08-21 09:00] VITALS: BP 128/67
[2022-08-21] MEDS: IPRATROPIUM BROM 0.5 MG/2.5ML INH SOL NEB PRN (11:47)
[2022-08-21] MEDS: ALBUTEROL MEDNEB 2.5 mg/3ml NEB NEB PRN (11:47)
[2022-08-21 13:00] VITALS: BP 121/49
[2022-08-21] MEDS: HYDROcodone-ACET 5/325MG TAB PO PRN ×2 (17:11→22:22)
[2022-08-21 22:00] VITALS: BP 142/47
[2022-08-21] MEDS: ATORVASTATIN 20 MG TAB PO SCH (22:21)
[2022-08-22 05:00] VITALS: BP 140/57
[2022-08-22] MEDS: LEVOTHYROXINE SODIUM 25 MCG TAB PO SCH (07:04)
[2022-08-22] MEDS: GLIMEPIRIDE 2 MG TAB PO SCH (07:04)
[2022-08-22] MEDS: LEVOTHYROXINE SODIUM 112 MCG TAB PO SCH (07:04)
[2022-08-22] MEDS: FUROSEMIDE 40 MG/4 ML VIAL IV SCH ×2 (07:05→18:09)
[2022-08-22] MEDS: ACCU-CHEK COMFORT CURVE STRIP VI SCH ×4 (07:06→22:00)
[2022-08-22] MEDS: InsuLIN REG 1unit/0.01ml Soln (100units/ml) SC SCH ×4 (07:06→22:43)
[2022-08-22] MEDS: GABAPENTIN 300 MG CAP PO SCH ×3 (07:07→22:40)
[2022-08-22 07:45] LABS: Potassium 3.6 mmol/L (3.5-5.1)
[2022-08-22 07:53] LABS: BUN/Creatinine Ratio 31.6; Calcium 8.5 mg/dL (8.5-10.1)
[2022-08-22] MEDS: PANTOPRAZOLE 40 MG/10 ML VIAL INJ IV SCH (08:42)
[2022-08-22] MEDS: cefTRIAXone 1GM/50ML D5W 50 ML IV SCH (08:42)
[2022-08-22] MEDS: metFORMIN HYDROCHLORIDE 500 MG TAB PO SCH ×2 (08:43→18:08)
[2022-08-22] MEDS: POTASSIUM CHL 20 Meq TABLET PO SCH ×2 (08:43→22:40)
[2022-08-22] MEDS: APIXABAN 5 MG TAB PO SCH ×2 (08:43→22:40)
[2022-08-22] MEDS: DOCUSATE SOD 100 MG CAP PO SCH ×2 (08:43→22:40)
[2022-08-22] MEDS: HCTZ 25 MG TAB PO SCH (08:47)
[2022-08-22] MEDS: AMIODARONE HCL 200 MG TAB PO SCH (08:48)
[2022-08-22] MEDS: VENLAFAXINE HCL 37.5mg XR cap PO SCH ×2 (08:54→22:40)
[2022-08-22 09:00] VITALS: BP 153/57
[2022-08-22] MEDS: HYDROcodone-ACET 5/325MG TAB PO PRN (12:38)
[2022-08-22 13:00] VITALS: BP 134/49
[2022-08-22 17:00] VITALS: BP 147/66
[2022-08-22 22:00] VITALS: BP 149/69
[2022-08-22] MEDS: ATORVASTATIN 20 MG TAB PO SCH (22:40)
[2022-08-23] MEDS: HYDROcodone-ACET 5/325MG TAB PO PRN (01:26)
[2022-08-23 05:00] VITALS: BP 158/75
[2022-08-23] MEDS: LEVOTHYROXINE SODIUM 25 MCG TAB PO SCH (06:21)
[2022-08-23] MEDS: LEVOTHYROXINE SODIUM 112 MCG TAB PO SCH (06:21)
[2022-08-23] MEDS: GLIMEPIRIDE 2 MG TAB PO SCH (06:21)
[2022-08-23] MEDS: GABAPENTIN 300 MG CAP PO SCH ×2 (06:21→13:54)
[2022-08-23] MEDS: FUROSEMIDE 40 MG/4 ML VIAL IV SCH (06:23)
[2022-08-23] MEDS: InsuLIN REG 1unit/0.01ml Soln (100units/ml) SC SCH ×2 (06:25→11:33)
[2022-08-23] MEDS: ACCU-CHEK COMFORT CURVE STRIP VI SCH ×2 (06:25→11:32)
[2022-08-23 08:10] VITALS: BP 136/58
[2022-08-23] MEDS: metFORMIN HYDROCHLORIDE 500 MG TAB PO SCH (08:37)
[2022-08-23] MEDS: cefTRIAXone 1GM/50ML D5W 50 ML IV SCH (08:48)
[2022-08-23 09:00] VITALS: BP 136/58
[2022-08-23] MEDS: DOCUSATE SOD 100 MG CAP PO SCH (10:23)
[2022-08-23] MEDS: PANTOPRAZOLE 40 MG/10 ML VIAL INJ IV SCH (10:23)
[2022-08-23] MEDS: POTASSIUM CHL 20 Meq TABLET PO SCH (10:23)
[2022-08-23] MEDS: AMIODARONE HCL 200 MG TAB PO SCH (10:24)
[2022-08-23] MEDS: APIXABAN 5 MG TAB PO SCH (10:24)
[2022-08-23] MEDS: VENLAFAXINE HCL 37.5mg XR cap PO SCH (10:24)
[2022-08-23] MEDS: HCTZ 25 MG TAB PO SCH (10:25)
[2022-08-23 13:00] VITALS: BP 138/63
[2022-08-23 14:31] VITALS: BP 138/63
== END 2022-08-23 15:56 | DRG 480 ==
LOC: ER 11:06 → EDBD 11:06 → TELE 16:52 → TELE-WESTW 22:55
PROVIDERS: ADMIT Nurse Practitioner Family; ATTEND Internal Medicine Geriatric Medicine
PROC: BQ111ZZ Fluoroscopy of Left Hip using Low Osmolar Contrast (ICD-10-PCS; 2022-08-11)
PROC: 0QS704Z Reposition Left Upper Femur with Internal Fixation Device, Open Approach (ICD-10-PCS; principal; 2022-08-11 11:10)
DX: S72.142A Displaced intertrochanteric fracture of left femur, initial encounter for closed fracture (principal); I50.23 Acute on chronic systolic (congestive) heart failure; J96.01 Acute respiratory failure with hypoxia; N17.9 Acute kidney failure, unspecified; M48.56XA Collapsed vertebra, not elsewhere classified, lumbar region, initial encounter for fracture; W01.0XXA Fall on same level from slipping, tripping and stumbling without subsequent striking against object, initial encounter; D72.829 Elevated white blood cell count, unspecified; E03.9 Hypothyroidism, unspecified; E05.90 Thyrotoxicosis, unspecified without thyrotoxic crisis or storm; E66.01 Morbid (severe) obesity due to excess calories; E78.5 Hyperlipidemia, unspecified; I11.0 Hypertensive heart disease with heart failure; Y93.01 Activity, walking, marching and hiking; E11.9 Type 2 diabetes mellitus without complications; E87.6 Hypokalemia; K59.00 Constipation, unspecified; I48.91 Unspecified atrial fibrillation; E83.42 Hypomagnesemia; Z53.20 Procedure and treatment not carried out because of patient's decision for unspecified reasons; S40.022A Contusion of left upper arm, initial encounter; Z75.1 Person awaiting admission to adequate facility elsewhere; Z82.5 Family history of asthma and other chronic lower respiratory diseases; Z90.710 Acquired absence of both cervix and uterus; Z91.81 History of falling; Z68.39 Body mass index [BMI] 39.0-39.9, adult; Z90.49 Acquired absence of other specified parts of digestive tract; Y92.092 Bedroom in other non-institutional residence as the place of occurrence of the external cause; Y99.8 Other external cause status
CPT/HCPCS: 36415; 71045; 72128; 72131; 72170; 72192; 73060; 73200; 73501; 73502; 73610; 76000; 80048; 80053; 80061; 81001; 82962; 83036; 83605; 83735; 83880; 84443; 85007; 85025; 85027; 85610; 85730; 86803; 86850; 86900; 86901; 87340; 87426; 93005; 93306; 94640; 96374; 96375; 97110; 97116; 97163; 97530; C9113; G0378; J0690; J0696; J1815; J1956; J2250; J2405; J2704; J3490; J7060

== ENCOUNTER 2022-10-03 21:18 | Inpatient (IN) | payer OTHER ==
[~2022-10-03] VITALS: Ht 152.4 cm; Wt 80.0 kg
[~2022-10-03 21:18] MED LIST changes: +ACE650RS PR; +ACET-1079 PO; +AMIO200T33 PO; +APIX5TAB PO; +CHOL20007 PO; +GLIM4TAB42 PO; +HYDR-3682 PO; +LEVO137T3 PO; +MELO1TAB56 PO; +OXYB5TAB61 PO; +PIO30T PO; -PIOG1TAB36 PO; +[UNRECOGNIZED DRUG - CODE] PO
[2022-10-03] MEDS ORDERED: DEXTROSE (50%) 50ML SYRG IV ONE ×2 (21:30→21:45)
[2022-10-03] MEDS ORDERED: ACCU-CHEK COMFORT CURVE STRIP VI ONE ×2 (21:30→21:45)
[2022-10-03 22:04] LABS: Basophils # (auto) 0.1 10 ^3/uL (0-0.2); Basophils % (auto) 0.6 % (0.0-2.0); Eosinophils # (auto) 0.1 10 ^3/uL (0-0.8); Eosinophils % (auto) 1.2 % (0.0-7.0); Hematocrit 38.7 % (36.0-46.0); Hemoglobin 12.8 g/dL (12.2-16.2); Lymphocytes # (auto) 1.9 10 ^3/uL (0.4-5.4); Lymphocytes % (auto) 18.8 % (10.0-50.0); Mean Corpuscular Hemoglobin 30.1 pg (28.0-32.0); Mean Corpuscular Hgb Conc. 32.9 g/dL (32.0-36.0); Mean Corpuscular Volume 91.5 fL (80.0-100.0); Monocytes # (auto) 0.8 10 ^3/uL (0-1.3); Monocytes % (auto) 8.1 % (0.0-12.0); Neutrophils # (auto) 7.3 10 ^3/uL (1.6-8.6); Neutrophils % (auto) 71.3 % (37.0-80.0); Nucleated Red Blood Cells % 0.2 %; Red Blood Cells 4.23 10^6/uL (4.0-5.20); Red Cell Distribution Width 16.5 % (11.8-14.3); White Blood Cell 10.3 10^3/uL (4.4-10.8)
[2022-10-03 22:08] LABS: Albumin 2.9 g/dL (3.4-5.0); BUN/Creatinine Ratio 15.2; Calcium 8.2 mg/dL (8.5-10.1)
[2022-10-03 22:24] LABS: Bilirubin, Total 0.2 mg/dL (0.2-1.0); Total Protein 6.8 g/dL (6.4-8.2)
[2022-10-03] MEDS ORDERED: DEXTROSE 10% 1,000 ML IV SCH (23:15)
[2022-10-04] MEDS ORDERED: DOCUSATE SOD 100 MG CAP PO PRN (01:15)
[2022-10-04] MEDS ORDERED: ONDANSETRON HCL 4 MG/2 ML VIAL IV PRN (01:15)
[2022-10-04] MEDS ORDERED: MORPHINE SULFATE INJ 2 MG/ml SYRG IV PRN (01:15)
[2022-10-04] MEDS ORDERED: SODIUM CHLORIDE 0.9% 1,000 ML IV SCH (01:15)
[2022-10-04] MEDS ORDERED: NITROGLYCERIN 0.4 MG SL TAB SL PRN (01:15)
[2022-10-04] MEDS ORDERED: ACETAMINOPHEN 325 MG TAB PO PRN (01:15)
[2022-10-04] MEDS: POTASSIUM CHL 20MEQ/100ML 100 ML IV SCH ×2 (02:22→04:25)
[2022-10-04] MEDS: HYDROcodone-ACET 5/325MG TAB PO PRN ×2 (02:28→11:30)
[2022-10-04] MEDS: InsuLIN REG 1unit/0.01ml Soln (100units/ml) SC SCH ×5 (04:00→20:32)
[2022-10-04] MEDS: ACCU-CHEK COMFORT CURVE STRIP VI SCH ×5 (04:25→20:32)
[2022-10-04] MEDS: DEXTROSE (50%) 50ML SYRG IV PRN ×4 (04:28→18:46)
[2022-10-04] MEDS: DEXTROSE 10% 1,000 ML IV SCH ×2 (04:45→14:45)
[2022-10-04 05:04] LABS: Albumin 2.9 g/dL (3.4-5.0); BUN/Creatinine Ratio 14.8; Calcium 8.1 mg/dL (8.5-10.1); Potassium 3.7 mmol/L (3.5-5.1)
[2022-10-04 05:06] LABS: Bilirubin, Total 0.2 mg/dL (0.2-1.0); Total Protein 6.3 g/dL (6.4-8.2)
[2022-10-04 05:12] LABS: Basophils # (auto) 0 10 ^3/uL (0-0.2); Basophils % (auto) 0.4 % (0.0-2.0); Eosinophils # (auto) 0.1 10 ^3/uL (0-0.8); Eosinophils % (auto) 0.7 % (0.0-7.0); Hematocrit 38.8 % (36.0-46.0); Hemoglobin 12.5 g/dL (12.2-16.2); Lymphocytes # (auto) 3.2 10 ^3/uL (0.4-5.4); Lymphocytes % (auto) 27.5 % (10.0-50.0); Mean Corpuscular Hemoglobin 29.3 pg (28.0-32.0); Mean Corpuscular Hgb Conc. 32.2 g/dL (32.0-36.0); Mean Corpuscular Volume 90.9 fL (80.0-100.0); Monocytes # (auto) 0.9 10 ^3/uL (0-1.3); Neutrophils # (auto) 7.5 10 ^3/uL (1.6-8.6); Neutrophils % (auto) 63.4 % (37.0-80.0); Nucleated Red Blood Cells % 0.1 %; Red Blood Cells 4.27 10^6/uL (4.0-5.20); Red Cell Distribution Width 16.1 % (11.8-14.3); White Blood Cell 11.8 10^3/uL (4.4-10.8)
[2022-10-04] MEDS: LEVOTHYROXINE SODIUM 50 MCG TAB PO SCH (06:20)
[2022-10-04] MEDS: APIXABAN 5 MG TAB PO SCH ×2 (11:14→22:09)
[2022-10-04] MEDS: FAMOTIDINE (10MG/ML) 2ML VL IV SCH (11:14)
[2022-10-05] MEDS: ACCU-CHEK COMFORT CURVE STRIP VI SCH ×3 (00:03→08:24)
[2022-10-05] MEDS: InsuLIN REG 1unit/0.01ml Soln (100units/ml) SC SCH ×3 (00:03→08:23)
[2022-10-05] MEDS: DEXTROSE 10% 1,000 ML IV SCH ×2 (00:05→10:45)
[2022-10-05 05:13] LABS: Basophils # (auto) 0.1 10 ^3/uL (0-0.2); Basophils % (auto) 0.7 % (0.0-2.0); Eosinophils # (auto) 0.1 10 ^3/uL (0-0.8); Hemoglobin 12.2 g/dL (12.2-16.2); Lymphocytes # (auto) 2.5 10 ^3/uL (0.4-5.4); Lymphocytes % (auto) 23.9 % (10.0-50.0); Mean Corpuscular Hemoglobin 30.3 pg (28.0-32.0); Mean Corpuscular Hgb Conc. 33.8 g/dL (32.0-36.0); Mean Corpuscular Volume 89.5 fL (80.0-100.0); Monocytes # (auto) 0.9 10 ^3/uL (0-1.3); Monocytes % (auto) 8.4 % (0.0-12.0); Neutrophils # (auto) 6.8 10 ^3/uL (1.6-8.6); Nucleated Red Blood Cells % 0.1 %; Red Blood Cells 4.03 10^6/uL (4.0-5.20); White Blood Cell 10.4 10^3/uL (4.4-10.8)
[2022-10-05 05:32] LABS: Albumin 2.7 g/dL (3.4-5.0); Calcium 7.8 mg/dL (8.5-10.1); Potassium 3.6 mmol/L (3.5-5.1)
[2022-10-05 05:36] LABS: BUN/Creatinine Ratio 18.5; Bilirubin, Total 0.4 mg/dL (0.2-1.0); Total Protein 5.7 g/dL (6.4-8.2)
[2022-10-05] MEDS: LEVOTHYROXINE SODIUM 50 MCG TAB PO SCH (06:38)
[2022-10-05 08:00] VITALS: BP 138/66
[2022-10-05] MEDS: HYDROcodone-ACET 5/325MG TAB PO PRN (09:51)
[2022-10-05] MEDS: FAMOTIDINE (10MG/ML) 2ML VL IV SCH (10:00)
[2022-10-05] MEDS: APIXABAN 5 MG TAB PO SCH (10:00)
== END 2022-10-05 10:32 | disposition hospice, home (50) | DRG 638 ==
LOC: ER 21:18 → EDBD 21:18 → TELE 10-04 01:26
PROVIDERS: ADMIT Nurse Practitioner Family; ATTEND Internal Medicine Geriatric Medicine
DX: E11.649 Type 2 diabetes mellitus with hypoglycemia without coma (principal); E87.1 Hypo-osmolality and hyponatremia; E03.9 Hypothyroidism, unspecified; N17.9 Acute kidney failure, unspecified; E87.6 Hypokalemia; E88.09 Other disorders of plasma-protein metabolism, not elsewhere classified; E11.65 Type 2 diabetes mellitus with hyperglycemia; E66.01 Morbid (severe) obesity due to excess calories; Z68.34 Body mass index [BMI] 34.0-34.9, adult; E78.00 Pure hypercholesterolemia, unspecified; I10 Essential (primary) hypertension; I48.91 Unspecified atrial fibrillation; Z20.822 Contact with and (suspected) exposure to COVID-19; I25.2 Old myocardial infarction; Z82.5 Family history of asthma and other chronic lower respiratory diseases; Z90.710 Acquired absence of both cervix and uterus; Z90.49 Acquired absence of other specified parts of digestive tract
CPT/HCPCS: 36415; 80053; 82962; 83036; 84443; 84484; 85025; 87426; 96361; 96374; 99291; G0378; J1815; J3480; J3490

== ENCOUNTER 2024-03-16 16:29 | Inpatient (IN) | payer OTHER ==
[~2024-03-16] VITALS: Ht 160 cm; Wt 76.1 kg
[~2024-03-16 16:29] MED LIST changes: -AMLO-496 PO; +AMLO1TAB23 PO; +GABA-1251 PO; -GABA400C11 PO; +MELO15TA29 PO; -MELO1TAB56 PO; +OXYB5TAB14 PO; -OXYB5TAB61 PO; -SIMV-13 PO; +SIMV40TA18 PO
[2024-03-16 16:49] VITALS: PULSE 71; RESP 18; O2SAT 96
[2024-03-16 17:48] LABS: Basophils # (auto) 0.1 10 ^3/uL (0-0.2); Basophils % (auto) 1.4 % (0.0-2.0); Eosinophils # (auto) 0.1 10 ^3/uL (0-0.8); Hematocrit 42.5 % (36.0-46.0); Hemoglobin 14.2 g/dL (12.2-16.2); Lymphocytes # (auto) 2.9 10 ^3/uL (0.4-5.4); Lymphocytes % (auto) 29.1 % (10.0-50.0); Mean Corpuscular Hemoglobin 30.7 pg (28.0-32.0); Mean Corpuscular Hgb Conc. 33.4 g/dL (32.0-36.0); Monocytes # (auto) 0.5 10 ^3/uL (0-1.3); Monocytes % (auto) 4.6 % (0.0-12.0); Neutrophils # (auto) 6.4 10 ^3/uL (1.6-8.6); Neutrophils % (auto) 63.9 % (37.0-80.0); Nucleated Red Blood Cells % 0.1 %; Red Blood Cells 4.62 10^6/uL (4.0-5.20); Red Cell Distribution Width 16.2 % (11.8-14.3)
[2024-03-16 17:59] LABS: Urine Bacteria MANY /hpf (None Seen); Urine Blood Negative /uL (Negative); Urine Clarity Turbid (Clear); Urine Color Colorless (Yellow); Urine Mucus FEW (None Seen); Urine Protein, UAD TRACE (Negative); Urine Specific Gravity 1.016 (1.001-1.035); Urine Urobilinogen Normal (Negative); Urine WBC 95 /hpf (0 - 5); Urine WBC Clumps PRESENT /hpf (None Seen); Urine pH 5.5 (5.0-9.0)
[2024-03-16 18:07] LABS: Alanine Aminotransferase 80 U/L (7-40); Alkaline Phosphatase 168 U/L (46-116); Aspartate Aminotransferase 112 U/L (13-40); Chloride 104 mmol/L (98-107); Potassium 3.3 mmol/L (3.5-5.1); Sodium 136 mmol/L (136-145)
[2024-03-16 18:08] LABS: Albumin 3.9 g/dL (3.2-4.8)
[2024-03-16 18:26] LABS: Anion Gap 12 (5-15); Calcium 8.5 mg/dL (8.7-10.4); Carbon Dioxide 20 mmol/L (20-30)
[2024-03-16 18:31] LABS: BUN/Creatinine Ratio 24.5 (10.0-20.0); Blood Urea Nitrogen 34 mg/dL (9-23); Glucose 244 mg/dL (74-106)
[2024-03-16 18:33] LABS: Bilirubin, Total 0.3 mg/dL (0.2-1.0); Total Protein 5.8 g/dL (5.7-8.2)
[2024-03-16 18:51] LABS: Amphetamine Screen, Urine Neg (NEGATIVE); Barbiturate Scree,Urine Neg (NEGATIVE); Benzodiazephine Screen, Urine Neg (NEGATIVE); Cannabinoid Screen, Urine Neg (NEGATIVE); Cocaine Screen, Urine Neg (NEGATIVE); Opiate Scree,Urine Neg (NEGATIVE); Phencyclidine Screen, Urine Neg (NEGATIVE)
[2024-03-16 20:00] VITALS: PULSE 70; RESP 16; O2SAT 97
[2024-03-16] MEDS: cefTRIAXone 1GM/50ML D5W 50 ML IV ONE (20:23)
[2024-03-16] MEDS ORDERED: hydrALAZINE HCL 20 MG/ML VL IV PRN (20:30)
[2024-03-16] MEDS ORDERED: ONDANSETRON HCL 4 MG/2 ML VIAL IV PRN (20:30)
[2024-03-16] MEDS ORDERED: DEXTROSE (50%) 50ML SYRG IV PRN (20:30)
[2024-03-16] MEDS ORDERED: IBUPROFEN 400 MG TAB PO PRN (20:30)
[2024-03-16] MEDS: POTASSIUM CHL 20 Meq TABLET PO ONE (20:30)
[2024-03-16] MEDS: SODIUM CHLORIDE 0.9% 1,000 ML IV SCH (20:30)
[2024-03-16] MEDS ORDERED: MORPHINE SULFATE INJ 2 MG/ml SYRG IV PRN (21:30)
[2024-03-16] MEDS ORDERED: NITROGLYCERIN 0.4 MG SL TAB SL PRN (21:30)
[2024-03-16] MEDS: ACCU-CHEK COMFORT CURVE STRIP VI SCH (21:55)
[2024-03-16] MEDS: InsuLIN REG 1unit/0.01ml Soln (100units/ml) SC SCH (21:57)
[2024-03-16] MEDS: APIXABAN 5 MG TAB PO SCH (22:05)
[2024-03-16] MEDS: ATORVASTATIN 20 MG TAB PO SCH (22:05)
[2024-03-17] VITALS (7 sets, daily range): BP systolic 111–123; BP diastolic 48–65; PULSE 62–77; RESP 16–18; TEMP 97.2–97.8; O2SAT 96–99
[2024-03-17] MEDS: LEVOTHYROXINE SODIUM 100 MCG TAB PO SCH (06:29)
[2024-03-17 06:39] LABS: Basophils # (auto) 0.1 10 ^3/uL (0-0.2); Basophils % (auto) 0.9 % (0.0-2.0); Eosinophils # (auto) 0.1 10 ^3/uL (0-0.8); Eosinophils % (auto) 1.2 % (0.0-7.0); Hematocrit 36.3 % (36.0-46.0); Hemoglobin 12.2 g/dL (12.2-16.2); Lymphocytes # (auto) 3.4 10 ^3/uL (0.4-5.4); Lymphocytes % (auto) 33.5 % (10.0-50.0); Mean Corpuscular Hgb Conc. 33.6 g/dL (32.0-36.0); Mean Corpuscular Volume 92.4 fL (80.0-100.0); Monocytes # (auto) 0.7 10 ^3/uL (0-1.3); Monocytes % (auto) 6.4 % (0.0-12.0); Neutrophils # (auto) 5.9 10 ^3/uL (1.6-8.6); Red Blood Cells 3.93 10^6/uL (4.0-5.20); Red Cell Distribution Width 15.8 % (11.8-14.3); White Blood Cell 10.2 10^3/uL (4.4-10.8)
[2024-03-17] MEDS: InsuLIN REG 1unit/0.01ml Soln (100units/ml) SC SCH (06:42)
[2024-03-17 07:01] LABS: Alanine Aminotransferase 75 U/L (7-40); Albumin 3.5 g/dL (3.2-4.8); Alkaline Phosphatase 149 U/L (46-116); Anion Gap 8 (5-15); Aspartate Aminotransferase 97 U/L (13-40); BUN/Creatinine Ratio 20.7 (10.0-20.0); Blood Urea Nitrogen 31 mg/dL (9-23); Calcium 8.8 mg/dL (8.7-10.4); Carbon Dioxide 26 mmol/L (20-30); Chloride 102 mmol/L (98-107); Glucose 143 mg/dL (74-106); Potassium 2.9 mmol/L (3.5-5.1); Sodium 136 mmol/L (136-145)
[2024-03-17 07:02] LABS: Bilirubin, Total 0.3 mg/dL (0.2-1.0); Total Protein 5.6 g/dL (5.7-8.2)
[2024-03-17] MEDS: cefTRIAXone 1GM/50ML D5W 50 ML IV SCH (09:10)
[2024-03-17] MEDS: DOCUSATE SOD 100 MG CAP PO PRN (11:08)
[2024-03-17] MEDS: HYDROcodone-ACET 5/325MG TAB PO PRN (13:18)
[2024-03-17] MEDS ORDERED: POTASSIUM EFFERVESENT TAB 25 MEQ GT ONE (14:45)
[2024-03-17] MEDS: POTASSIUM EFFERVESENT TAB 25 MEQ PO ONE (18:29)
[2024-03-17] MEDS: MAGNESIUM OXIDE 400 MG TAB PO SCH (23:03)
[2024-03-18] VITALS (9 sets, daily range): BP systolic 103–134; BP diastolic 27–69; PULSE 66–79; RESP 16–21; TEMP 97.7–98.2; O2SAT 95–97
[2024-03-18 05:56] LABS: Basophils # (auto) 0.1 10 ^3/uL (0-0.2); Basophils % (auto) 1.3 % (0.0-2.0); Eosinophils # (auto) 0.1 10 ^3/uL (0-0.8); Eosinophils % (auto) 1.4 % (0.0-7.0); Hematocrit 36.6 % (36.0-46.0); Hemoglobin 12.2 g/dL (12.2-16.2); Lymphocytes # (auto) 3.3 10 ^3/uL (0.4-5.4); Lymphocytes % (auto) 31.5 % (10.0-50.0); Mean Corpuscular Hemoglobin 31.1 pg (28.0-32.0); Mean Corpuscular Hgb Conc. 33.3 g/dL (32.0-36.0); Mean Corpuscular Volume 93.4 fL (80.0-100.0); Monocytes # (auto) 0.7 10 ^3/uL (0-1.3); Monocytes % (auto) 6.6 % (0.0-12.0); Neutrophils # (auto) 6.1 10 ^3/uL (1.6-8.6); Neutrophils % (auto) 59.2 % (37.0-80.0); Nucleated Red Blood Cells % 0.1 %; Red Blood Cells 3.92 10^6/uL (4.0-5.20); White Blood Cell 10.3 10^3/uL (4.4-10.8)
[2024-03-18 06:20] LABS: Alanine Aminotransferase 72 U/L (7-40); Albumin 3.4 g/dL (3.2-4.8); Alkaline Phosphatase 144 U/L (46-116); Anion Gap 8 (5-15); Aspartate Aminotransferase 89 U/L (13-40); BUN/Creatinine Ratio 16.7 (10.0-20.0); Blood Urea Nitrogen 22 mg/dL (9-23); Calcium 8.4 mg/dL (8.7-10.4); Carbon Dioxide 24 mmol/L (20-30); Chloride 104 mmol/L (98-107); Glucose 180 mg/dL (74-106); Magnesium 1.1 mg/dL (1.6-2.6); Potassium 3.2 mmol/L (3.5-5.1); Sodium 136 mmol/L (136-145)
[2024-03-18 06:21] LABS: Bilirubin, Total 0.4 mg/dL (0.2-1.0); Total Protein 5.5 g/dL (5.7-8.2)
[2024-03-18] MEDS: MAGNESIUM SULFATE 1GM/100ML 100 ML IV SCH (14:46)
[2024-03-18] MEDS: POTASSIUM CHL 20 Meq TABLET PO ONE (14:46)
[2024-03-18] MEDS ORDERED: LEVOTHYROXINE SODIUM 50 MCG TAB PO ONE (15:15)
[2024-03-18] MEDS ORDERED: QUET1TAB11 PO (15:16)
[2024-03-18] MEDS ORDERED: FURO40TA4 PO (15:16)
[2024-03-18] MEDS ORDERED: SENN8.6T26 PO (15:16)
[2024-03-18] MEDS ORDERED: ATOR-507 PO (15:16)
[2024-03-18] MEDS ORDERED: POTA-180 PO (15:16)
[2024-03-18] MEDS: LEVOTHYROXINE SODIUM 100 MCG TAB PO ONE (17:20)
[2024-03-19] VITALS (9 sets, daily range): BP systolic 93–116; BP diastolic 48–62; PULSE 62–100; RESP 16–21; TEMP 97.7–98.7; O2SAT 92–99
[2024-03-19] MEDS: LEVOTHYROXINE SODIUM 100 MCG TAB PO SCH (05:24)
[2024-03-19] MEDS ORDERED: LEVOTHYROXINE SODIUM 50 MCG TAB PO SCH (06:00)
[2024-03-19] MEDS: GLYCERIN ADULT RECTAL SUPP PR ONE (18:47)
[2024-03-20] VITALS (7 sets, daily range): BP systolic 110–147; BP diastolic 43–80; PULSE 67–84; RESP 17–18; TEMP 97.4–98.7; O2SAT 95–97
[2024-03-20] MEDS: LACTULOSE 20Gm/30ML SOLN PO ONE (11:05)
[2024-03-20] MEDS: SORBITOL 70% SOLN 30ML PO ONE (17:30)
[2024-03-20] MEDS: BISACODYL 10 MG RECT SUPP PR ONE (18:45)
[2024-03-21 01:00] VITALS: BP 137/80; PULSE 77; RESP 17; TEMP 98.4; O2SAT 97
[2024-03-21 05:00] VITALS: BP 142/79; PULSE 75; RESP 15; TEMP 97.9; O2SAT 99
[2024-03-21 08:00] VITALS: PULSE 71; PULSE 74; RESP 16; O2SAT 98
[2024-03-21 09:00] VITALS: BP 119/72; PULSE 74; RESP 16; TEMP 98.4; O2SAT 98
== END 2024-03-21 12:56 | disposition home or self-care (01) | DRG 643 ==
LOC: EDBD 16:29 → ER 16:29 → TELE 21:18 → TELE-CENTR 03-17 01:17
PROVIDERS: ADMIT Nurse Practitioner Family; ATTEND Internal Medicine Geriatric Medicine
DX: E03.9 Hypothyroidism, unspecified (principal); G93.41 Metabolic encephalopathy; N39.0 Urinary tract infection, site not specified; E87.6 Hypokalemia; E11.65 Type 2 diabetes mellitus with hyperglycemia; N18.32 Chronic kidney disease, stage 3b; E78.5 Hyperlipidemia, unspecified; I48.91 Unspecified atrial fibrillation; L89.152 Pressure ulcer of sacral region, stage 2; E11.22 Type 2 diabetes mellitus with diabetic chronic kidney disease; I12.9 Hypertensive chronic kidney disease with stage 1 through stage 4 chronic kidney disease, or unspecified chronic kidney disease; K59.09 Other constipation; Z79.01 Long term (current) use of anticoagulants; Z90.49 Acquired absence of other specified parts of digestive tract; Z74.01 Bed confinement status; Z91.199 Patient's noncompliance with other medical treatment and regimen due to unspecified reason; Z82.5 Family history of asthma and other chronic lower respiratory diseases; Z90.710 Acquired absence of both cervix and uterus
CPT/HCPCS: 36415; 70450; 71045; 76705; 80053; 80307; 81001; 82140; 82962; 83735; 83880; 84443; 85025; 96365; 97110; 97163; 97530; G0378; J1815

== ENCOUNTER 2025-05-19 14:09 | Inpatient (IN) | payer OTHER ==
[~2025-05-19] VITALS: Ht 152.4 cm; Wt 60.4 kg
[~2025-05-19 14:09] MED LIST changes: +ATOR-507 PO; +FURO40TA4 PO; +POTA-180 PO; +QUET1TAB11 PO; +SENN8.6T26 PO
--- NOTE | 2025-05-19 14:27 | ED.PDOC ---
Altered Mental Status HPI Comments HPI: 80 y/o F, with PMHx of AFib, DM, HTN, [place], Thyroid Disease, and dementia presents to the ED for CC of ALOC. EMS reports, patient is coming from home where family called d/t patient having a change in behavior and becoming increasingly more altered x1week. Per EMS, family reports that patient's usual baseline is conversational with slight confusion d/t dementia. Upon arrival to the ED, patient is A&Ox0 and is having word salad yelling "help" and "I want to go home". EMS further relays, on scene patient's home was found filthy and may benefit from additional recourses along with a social service consult. Initial Vitals BP: HR: RR: O2: Temp: Past Medical History: AFIB, DM, HTN, [place], THYROID DISEASE, DEMENTIA, ckd Past Surgical History: CHOLECYSTECTOMY, HYSTERECTOMY Social History: Denies ETOH, smoking, and drug use. Medications: ELIQUIS, AMIODARONE Allergies: NKA HARGROVE: HPI: Poor Historian. REVIEW OF SYSTEMS: Limited given the patient history of dementia/Alzheimer presenting with altered mental status CONSTITUTIONAL: Denies acute: fever, diaphoresis, chills, HEAD: Denies acute: headache, photophobia Eyes: Denies acute: Double vision, vision loss, eye pain, eye discharge. EARS: Denies acute: tinnitus, hearing loss, ear discharge, ear pain, THROAT: Denies acute: sore throat, swelling, difficulty swallowing , pain with swallowing, change in voice. NECK: Denies acute: neck pain, neck swelling, stiff neck. HEART: Denies acute : chest pain, palpitations, LUNGS: Denies acute: SOB, wheezing, cough, hemoptysis ABDOMEN: Denies acute: abdominal pain, Nausea, Vomiting, diarrhea, melena , hematemesis, hematochezia SKIN: Denies acute: rash, redness, lesions, itchiness. EXTREMITIES: Denies acute: calf pain, numbness, tingling, weakness, denies pain in extremity. Denies acute: Low back pain. Neuro: Denies acute: focal neurological deficit, motor or sensory focal neurological deficit, tremors, seizure like activity, , dizziness, loss of bowel or bladder function, cauda equina like symptoms. : Denies acute: dysuria, hematuria, flank pain, increase in urinary frequency. PSYCH: Denies acute: hallucination, suicidal ideation, homicidal ideation. FEMALE: Denies acute: abnormal vaginal bleeding, foul odor, unusual discharge. PHYSICAL EXAM: General: ----[id number]----acute distress, awake and alert. Head: normocephalic, atraumatic. Neck: supple, trachea is midline, no swelling. Throat: Normal phonation. Eyes:, no erythema, no purulent discharge, no proptosis, no icterus. Heart: regular rate, regular rhythm, no significant murmur appreciated. Lungs: no apparent respiratory distress, No wheezing, no rhonchi, no crackles. No stridors Clear to auscultation bilaterally. Abdomen: non tender to palpation, non distended, soft, no guarding, no rebound, + bowel sounds. Patient is wearing a diaper Neuro: Awake, Alert, history of dementia. Unable to establish baseline. Patient makes eye contact has been asking and requesting to go home. Skin: no petechia, no purpura, no cyanosis, non-pale, not jaundice. Lower extremities: --no - Pitting edema no deformity, no focal swelling, no calf TTP. Makes eye contact. moves all four extremities. Face: no apparent facial droop. ED COURSE: DISCLAIMER: This medical document was created using an electronic medical record system with voice recognition software and computerized dictation system. Although this document has been carefully reviewed, there might still be some phonetic and typographical errors. Occasional wrong-word or "sound-alike" substitutions may have occurred due to the inherent limitations of voice recognition software. These areas are purely typographical due to imperfections of the software programs and do not reflect any compromise in the patient's medical care. Please read the chart carefully and recognize, using context, where these substitutions have occurred. Time Seen by MD: 14:15 Primary Care Provider: Unknown Reviewed Notes: Allergies Allergies: Coded Allergies: NO KNOWN ALLERGIES (Unverified , 09/05/12) Home Meds Reported Medications Furosemide (Furosemide) 40 Mg Tab, 40 MG PO daily with potassium for 30 Days 03/18/24 Quetiapine Fumerate (QUETIAPINE FUMARATE) 25 Mg Tab, 25 MG PO DAILY, TAB 03/18/24 Atorvastatin Calcium (Lipitor) 40 Mg Tab, 1 TAB PO DAILY, #30 TAB 5 Refills 03/18/24 Senna (Senna Laxative) 8.6 Mg Tab, 8.6 MG PO BID, TAB 03/18/24 Potassium Chloride (Potassium Chloride ER) 20 Meq Tab, 20 MEQ PO morning with lasix, TAB 03/18/24 Dimethyl Fumarate (Dimethyl Fumarate) 120 Mg Cap, 120 MG PO, CAP 08/10/22 Pioglitazone Hydrochloride (ACTOS TABLET) 30 Mg Tb, 1 TAB PO DAILY, #30 TAB 5 Refills 08/10/22 Apixaban Base (ELIQUIS) 5 Mg Tab, 5 MG PO BID, TAB 08/10/22 Amiodarone Hcl (Amiodarone Hcl) 200 Mg Tab, 1 TAB PO DAILY, #90 TAB 1 Refill 08/10/22 Levothyroxine Sodium (Levothyroxine Sodium) 137 Mcg Tab, 1 TAB PO DAILY, #30 TAB 5 Refills 08/10/22 Hydroxyzine Hcl (Hydroxyzine Hcl) 25 Mg Tab, 25 MG PO, TAB 08/10/22 Cholecalciferol (VITAMIN D3) 2,000 Unit Tab, 1 TAB PO DAILY, #30 TAB 5 Refills 08/10/22 Acetaminophen (Tylenol) 650 Mg Rc, 650 MG FL, SUPP.RECT 08/10/22 Acetaminophen (Tylenol) 325 Mg Tb, 325 MG PO, TAB 08/10/22 Meloxicam (Meloxicam) 15 Mg Tab, 1 TAB PO DAILYP PRN for PAIN SCALE 1 THRU 6, #30 TAB 2 Refills 08/10/22 Glimepiride (Glimepiride) 4 Mg Tab, 1 TAB PO DAILY, #30 TAB 5 Refills 08/10/22 Oxybutynin Chloride (Oxybutynin Chloride) 5 Mg Tab, 5 MG PO DAILY, TAB 08/10/22 Metformin Hydrochloride (Metformin Hcl) 1,000 Mg Tab, 1 TAB PO BID 01/16/21 Ciprofloxacin Hcl (Ciprofloxacin Hcl) 500 Mg Tab, 1 TAB PO BID 01/16/21 Gabapentin (Gabapentin) 400 Mg Cap, 1 CAP PO TID 01/16/21 Simvastatin (Simvastatin) 40 Mg Tab, 1 TAB PO 01/16/21 Hydrochlorothiazide (Hydrochlorothiazide) 12.5 Mg Tab, PO 01/16/21 Amlodipine Besylate (Amlodipine Besylate) 10 Mg Tab, 1 TAB PO DAILYPRN 01/16/21 Hydrocodone-Acetaminophen (Hydrocodone/Acetaminophen 10-325 mg) 1 Tab Tab 01/16/21 Venlafaxine Hcl (Venlafaxine Hcl Er) 150 Mg Cap, 1 CAP PO DAILYPRN 01/16/21 Venlafaxine Hcl (Venlafaxine Hcl Er) 75 Mg Cap, 1 CAP PO DAILYPRN 01/16/21 Sitagliptin Phosphate (Januvia) 100 Mg Tab, 1 TAB PO DAILYPRN 01/16/21 Information Source: Emergency Med Personnel Mode of Arrival: EMS Duration: Since onset Prehospital treatment: IVF Quality: Change in Behavior, Confusion Recent: None History of: Dementia, Diabetes Associated Signs and Symptoms: None Was a procedure done? Was a procedure done?: No Differential Diagnosis (ALOC) Differential Diagnosis: Dehydration, Hypoglycemia, Encephalopathy, Sepsis, Closed Head Injury, CVA, Heart Failure, Renal Failure X-Ray, Labs, Meds, VS Vital Signs Date Time Temp Pulse Resp B/P (MAP) Pulse Ox O2 Delivery O2 Flow Rate FiO2 05/19/25 15:15 97.4 54 18 146/76 95 97.4 05/19/25 14:18 53 Lab Test 05/19/25 16:33 05/19/25 15:21 Range/Units Troponin I High Sensitivity 8 8 </=34 ng/L White Blood Count 10.3 4.4-10.8 10^3/uL Red Blood Count 4.13 4.0-5.20 10^6/uL Hemoglobin 12.8 12.2-16.2 g/dL Hematocrit 39.1 36.0-46.0 % Mean Corpuscular Volume 94.7 80.0-100.0 fL Mean Corpuscular Hemoglobin 31.1 28.0-32.0 pg Mean Corpuscular Hemoglobin Concent 32.8 32.0-36.0 g/dL Red Cell Distribution Width 15.8 H 11.8-14.3 % Platelet Count 261 140-450 10^3/uL Mean Platelet Volume 8.8 6.9-10.8 fL Neutrophils (%) (Auto) 75.5 37.0-80.0 % Lymphocytes (%) (Auto) 17.3 10.0-50.0 % Monocytes (%) (Auto) 5.6 0.0-12.0 % Eosinophils (%) (Auto) 0.5 0.0-7.0 % Basophils (%) (Auto) 1.1 0.0-2.0 % Neutrophils # (Auto) 7.8 1.6-8.6 10 ^3/uL Lymphocytes # (Auto) 1.8 0.4-5.4 10 ^3/uL Monocytes # (Auto) 0.6 0-1.3 10 ^3/uL Eosinophils # (Auto) 0.1 0-0.8 10 ^3/uL Basophils # (Auto) 0.1 0-0.2 10 ^3/uL Nucleated Red Blood Cells 0.0 % Sodium Level 139 136-145 mmol/L Potassium Level 5.3 H 3.5-5.1 mmol/L Chloride Level 106 98-107 mmol/L Carbon Dioxide Level 21 20-31 mmol/L Anion Gap 12 5-15 Blood Urea Nitrogen 25 H 9-23 mg/dL Creatinine 1.84 H 0.550-1.02 mg/dL Glomerular Filtration Rate Calc 28 >90 mL/min BUN/Creatinine Ratio 13.6 10.0-20.0 Serum Glucose 113 H 74-106 mg/dL Hemoglobin A1c 5.6 <5.7 % A1C Lactic Acid Level 1.4 0.4-2.0 mmol/L Calcium Level 9.0 8.7-10.4 mg/dL Total Bilirubin 0.4 0.2-1.0 mg/dL Aspartate Amino Transferase (AST) 33 13-40 U/L Alanine Aminotransferase (ALT) 27 7-40 U/L Alkaline Phosphatase 98 46-116 U/L Total Protein 6.5 5.7-8.2 g/dL Albumin 3.8 3.2-4.8 g/dL Current Medications Medications (Trade) Dose Ordered Sig/Bessy Route Start Time Stop Time Status Last Admin Sodium Chloride 1,000 ml @ 1,000 mls/hr Q1H ONCE IV 05/19/25 14:30 05/19/25 15:29 DC 05/19/25 15:[address] [address] Ph: [phone] DIAGNOSTIC IMAGING Diagnostic Imaging Report : [id number] Signed PATIENT: ENID HARGROVE MACCT: [id number] UNIT: [id number] : 1945 LOC: ER ROOM / BED: / AGE / SEX: 80 / F ADM STATUS: REG ER SERVICE 1416 ORDERING PHYSICIAN: MISTY FELICIANO DO PROCEDURE(s): CXRP - CHEST PORTABLE REASON: AMS ORDER NUMBER(s): [id number], ACCESSION NUMBER(s): [id number] INDICATION: AMS TECHNIQUE: Frontal view of the chest. COMPARISON: XY CHEST XRAY 1 VIEW on DOS: 03/16/24, CHEST PORTABLE on DOS: 08/18/22, CXRP on DOS: 08/18/22, CHEST XRAY 1 VIEW on DOS: 08/14/22, CXR1 on DOS: 08/14/22 FINDINGS: The heart and mediastinal contours are grossly unremarkable. There is no evidence of pleural disease. The lungs are clear. The bony structures of the chest are intact without fracture. IMPRESSION: 1. No evidence of acute disease. ATED BY: PANCHO SHEPHERD MD DICTATED DATE/TIME: 05/19/25 6350 SIGNED BY: PANCHO SHEPHERD MD [place] [address] Ph: [phone] DIAGNOSTIC IMAGING Diagnostic Imaging Report : [id number] Signed PATIENT: ENID HARGROVE MACCT: [id number] UNIT: [id number] : 1945 LOC: OVERFLOW ROOM / BED: 1014-ER / A AGE / SEX: 80 / F ADM STATUS: ADM IN SERVICE 1719 ORDERING PHYSICIAN: JACK TORRES CENTER HUMAN RESOURCES MANAGER PROCEDURE(s): HWOCT - HEAD WITHOUT CONTRAST REASON: aloc ORDER NUMBER(s): [id number], ACCESSION NUMBER(s): [id number] CT HEAD WITHOUT CONTRAST Indication: aloc EXAM DATE: 05/19/2025 05:27 PM COMPARISON: CT HEAD WITHOUT CONTRAST on DOS: 03/16/24 TECHNIQUE: CT of the head without intravenous contrast. RADIATION DOSE: CTDIvol: 32.63 mGy, DLP: 608 mGy*cm FINDINGS: There is no intracranial hemorrhage. There is no extra-axial fluid, mass, mass effect or midline shift. The ventricles are midline and normal in size. Basilar cisterns are patent. There are moderate periventricular and subcortical white matter chronic microvascular ischemic changes mild global cerebral volume loss. The paranasal sinuses and mastoids are well-pneumatized. Imaged portion of the orbits are unremarkable. IMPRESSION: No intracranial hemorrhage or mass effect. Moderate chronic microvascular ischemic changes Mild global cerebral volume loss ATED BY: ARIANE JOEL MD DICTATED DATE/TIME: 05/19/251801 SIGNED BY: ARIANE JOEL MD SIGNED DATE/TIME: 05/19/251801 CC: SIGNED DATE/TIME: 05/19/25 1448 CC: Time of 1ST Reevaluation: 14:45 Reevaluation 1ST: Unchanged Patient Education/Counseling: Other Family Education/Counseling: No Family Present Comments MDM: patient presented with the above HPI.----altered mental status--workup was initiated. patient was found with the above mentioned diagnosis. the following medications were ordered: please refer to order lists of meds and tests obtained by myself Dr. Feliciano. Patient ED course and VS have been stabilized. Patient has been reassessed in the ED and remained in a stable condition. Patient has been observed in the ED adequate length of time to insure improvement/stability. Escalation of care considered: Consideration of escalation to observation or admission Patient was ADMITTED to the medicine team for further evaluation and treatment of their presentation. All the reports of any imaging studies that were ordered by myself were reviewed by myself. SEPSIS Sepsis Screen Physician Orders Manufacturing Engineering Professor (05/19/25 ) Chest Portable (05/19/25 14:16) Electrocardigram (05/19/25 14:16) Troponin-I Hs (05/19/25 17:16) * Marketing Account Executive Consult (05/19/25 ) Vital Signs Date Time Temp Pulse Resp B/P (MAP) Pulse Ox O2 Delivery O2 Flow Rate FiO2 05/19/25 15:15 97.4 54 18 146/76 95 97.4 05/19/25 14:18 53 Laboratory Tests Test 05/19/25 15:21 Lactic Acid Level 1.4 mmol/L (0.4-2.0) White Blood Count 10.3 10^3/uL (4.4-10.8) Medications Medications Dose Ordered Sig/Bessy Route Start Time Stop Time Status Last Admin Dose Admin Sodium Chloride 1,000 ml @ 1,000 mls/hr Q1H ONCE IV 05/19/25 14:30 05/19/25 15:29 DC 05/19/25 15:06 Departure 1 Departure Time of Disposition: 16:24 Impression: Primary Impression: Altered mental status Disposition: ADMITTED INPATIENT Admit to: Tele Condition: Guarded Discharged With: Self Critical Care Note Critical Care Time?: No I personally scribed for MISTY FELICIANO DO ([email or web address]) on 05/19/25 at 14:27. Electronically submitted by Sunitha Kuo ([email or web address]). I personally scribed for MISTY FELICIANO DO ([email or web address]) on 05/19/25 at 15:05. Electronically submitted by Sunitha Kuo ([email or web address]). MISTY FELICIANO DO May 19, 2025 14:27
[2025-05-19 14:39] VITALS: PULSE 52; RESP 11; O2SAT 98
--- NOTE | 2025-05-19 14:50 | DVH ---
INDICATION: AMS TECHNIQUE: Frontal view of the chest. COMPARISON: XY CHEST XRAY 1 VIEW on DOS: 03/16/24, CHEST PORTABLE on DOS: 08/18/22, CXRP on DOS: 08/18/22, CHEST XRAY 1 VIEW on DOS: 08/14/22, CXR1 on DOS: 08/14/22 FINDINGS: The heart and mediastinal contours are grossly unremarkable. There is no evidence of pleural diseas e. The lungs are clear. The bony structures of the chest are intact without fracture. IMPRESSION: 1. No evidence of acute disease.
[2025-05-19] MEDS: SODIUM CHLORIDE 0.9% 1,000 ML IV ONE (15:06)
[2025-05-19 15:42] LABS: Hematocrit 39.1 % (36.0-46.0); Hemoglobin 12.8 g/dL (12.2-16.2); Mean Corpuscular Hemoglobin 31.1 pg (28.0-32.0); Mean Corpuscular Volume 94.7 fL (80.0-100.0); Nucleated Red Blood Cells % 0.0 %
[2025-05-19 15:57] LABS: Alanine Aminotransferase 27 U/L (7-40); Albumin 3.8 g/dL (3.2-4.8); Alkaline Phosphatase 98 U/L (46-116); Anion Gap 12 (5-15); BUN/Creatinine Ratio 13.6 (10.0-20.0); Bilirubin, Total 0.4 mg/dL (0.2-1.0); Calcium 9.0 mg/dL (8.7-10.4); Carbon Dioxide 21 mmol/L (20-31); Chloride 106 mmol/L (98-107); Sodium 139 mmol/L (136-145); Total Protein 6.5 g/dL (5.7-8.2)
[2025-05-19 16:00] LABS: Blood Urea Nitrogen 25 mg/dL (9-23); Glucose 113 mg/dL (74-106); Potassium 5.3 mmol/L (3.5-5.1)
--- NOTE | 2025-05-19 17:23 | DVHHP2 ---
History of Present Illness Reason for Visit: ALOC History of Present Illness Rebecca Fernandez 80-year-old female with past medical history of dementia, AFib, diabetes, hypertension, LA, hyperlipidemia, thyroid disease, dementia, CKD, cholecystectomy, hysterectomy, and left hip or if who presents to the ED with altered level of consciousness per family for the last 1 week. Per reports patient's usual baseline is verbal with slight confusion due to dementia. Per EMS reports patient was found at home filthy. Patient alert but response with words are not appropriate. Called contact Carmen with no answer. Called contact Odell x 2 answered and hung up on me. 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 moist/pink Respiratory: Normal air movement Cardiovascular: Normal S1, Normal S2 Abdominal: Normal bowel sounds, Soft Extremities: No cyanosis Labs/Xrays Labs Test 05/19/25 16:33 05/19/25 15:21 Range/Units Troponin I High Sensitivity 8 </=34 ng/L White Blood Count 10.3 4.4-10.8 10^3/uL Red Blood Count 4.13 4.0-5.20 10^6/uL Hemoglobin 12.8 12.2-16.2 g/dL Hematocrit 39.1 36.0-46.0 % Mean Corpuscular Volume 94.7 80.0-100.0 fL Mean Corpuscular Hemoglobin 31.1 28.0-32.0 pg Mean Corpuscular Hemoglobin Concent 32.8 32.0-36.0 g/dL Red Cell Distribution Width 15.8 H 11.8-14.3 % Platelet Count 261 140-450 10^3/uL Mean Platelet Volume 8.8 6.9-10.8 fL Neutrophils (%) (Auto) 75.5 37.0-80.0 % Lymphocytes (%) (Auto) 17.3 10.0-50.0 % Monocytes (%) (Auto) 5.6 0.0-12.0 % Eosinophils (%) (Auto) 0.5 0.0-7.0 % Basophils (%) (Auto) 1.1 0.0-2.0 % Neutrophils # (Auto) 7.8 1.6-8.6 10 ^3/uL Lymphocytes # (Auto) 1.8 0.4-5.4 10 ^3/uL Monocytes # (Auto) 0.6 0-1.3 10 ^3/uL Eosinophils # (Auto) 0.1 0-0.8 10 ^3/uL Basophils # (Auto) 0.1 0-0.2 10 ^3/uL Nucleated Red Blood Cells 0.0 % Sodium Level 139 136-145 mmol/L Potassium Level 5.3 H 3.5-5.1 mmol/L Chloride Level 106 98-107 mmol/L Carbon Dioxide Level 21 20-31 mmol/L Anion Gap 12 5-15 Blood Urea Nitrogen 25 H 9-23 mg/dL Creatinine 1.84 H 0.550-1.02 mg/dL Glomerular Filtration Rate Calc 28 >90 mL/min BUN/Creatinine Ratio 13.6 10.0-20.0 Serum Glucose 113 H 74-106 mg/dL Lactic Acid Level 1.4 0.4-2.0 mmol/L Calcium Level 9.0 8.7-10.4 mg/dL Total Bilirubin 0.4 0.2-1.0 mg/dL Aspartate Amino Transferase (AST) 33 13-40 U/L Alanine Aminotransferase (ALT) 27 7-40 U/L Alkaline Phosphatase 98 46-116 U/L Total Protein 6.5 5.7-8.2 g/dL Albumin 3.8 3.2-4.8 g/dL INDICATION: AMS TECHNIQUE: Frontal view of the chest. COMPARISON: XY CHEST XRAY 1 VIEW on DOS: 03/16/24, CHEST PORTABLE on DOS: 08/18/22, CXRP on DOS: 08/18/22, CHEST XRAY 1 VIEW on DOS: 08/14/22, CXR1 on DOS: 08/14/22 FINDINGS: The heart and mediastinal contours are grossly unremarkable. There is no evidence of pleural disease. The lungs are clear. The bony structures of the chest are intact without fracture. IMPRESSION: 1. No evidence of acute disease. SEPSIS Sepsis Screen Date sepsis recognized/suspect: May 19, 2025 Time Sepsis recognized/suspect: 1414 Recent Procedure: No On Antibiotic Therapy: No Respiratory Rate >20: No Heart Rate >90: No Temp<36 C (96.8 F) or >38.3 C: No SBP <90 or MAP <65 mmHG: No New Acute Mental Status Change: No Is the patient on CPAP, BIPAP,: No Physician Orders Relocation Coordinator (05/19/25 ) Urinalysis (05/19/25 14:16) Chest Portable (05/19/25 14:16) Electrocardigram (05/19/25 14:16) Troponin-I Hs (05/19/25 17:16) * Critical Care Cns Consult (05/19/25 ) Vital Signs Date Time Temp Pulse Resp B/P (MAP) Pulse Ox O2 Delivery O2 Flow Rate FiO2 05/19/25 15:15 97.4 54 18 146/76 95 97.4 05/19/25 14:18 53 Laboratory Tests Test 05/19/25 15:21 Lactic Acid Level 1.4 mmol/L (0.4-2.0) White Blood Count 10.3 10^3/uL (4.4-10.8) Medications Medications Dose Ordered Sig/Bessy Route Start Time Stop Time Status Last Admin Dose Admin Sodium Chloride 1,000 ml @ 1,000 mls/hr Q1H ONCE IV 05/19/25 14:30 05/19/25 15:29 DC 05/19/25 15:06 1,000 MLS/HR Assessment/Plan Assessment/Plan Assessment Acute encephalopathy Hyperkalemia HOLLY likely prerenal History of AFib History of diabetes History of hypertension History of LA History of hyperlipidemia History of thyroid disease History of dementia History of CKD History of cholecystectomy History of hysterectomy History of left hip ORIF Plan Admit to med surge Hemoglobin A1c ISS and Accu-Cheks NS 1 L given in ED Gentlel IV hydration Troponin noted negative x2 EKG UA Lactic level UDS Eli catheter Ammonia level CT head [facility] Diet Home medications reconciled DVT prophylaxis-patient on Eliquis PUD prophylaxis-PPIs Discussed plan of care with nurse [id number] Preventive counseling healthy eating habits, physical activity, and regular checkups Plan discussed with: Other Date of Service: May 19, 2025 Billing Provider: JACK TORRES Common Visit Codes: [id number]-[id number] INP/OBS CARE (HIGH) Secondary Visit Codes: 39778-[id number] COUNSELING IND JACK TORRES May 19, 2025 17:23
[2025-05-19] MEDS ORDERED: ONDANSETRON HCL 4 MG/2 ML VIAL IV PRN (17:30)
[2025-05-19 17:49] LABS: Urine Protein, UAD Negative (Negative)
[2025-05-19 17:56] LABS: Amphetamine Screen, Urine Neg (NEGATIVE); Barbiturate Scree,Urine Neg (NEGATIVE); Benzodiazephine Screen, Urine Neg (NEGATIVE); Cannabinoid Screen, Urine Neg (NEGATIVE); Cocaine Screen, Urine Neg (NEGATIVE); Opiate Scree,Urine Neg (NEGATIVE); Phencyclidine Screen, Urine Neg (NEGATIVE)
[2025-05-19] MEDS ORDERED: SODIUM CHLORIDE 0.9% 1,000 ML IV SCH (18:00)
[2025-05-19] MEDS ORDERED: DEXTROSE (50%) 50ML SYRG IV PRN (18:00)
--- NOTE | 2025-05-19 18:01 | DVH ---
CT HEAD WITHOUT CONTRAST Indication: aloc EXAM DATE: 05/19/2025 05:27 PM COMPARISON: CT HEAD WITHOUT CONTRAST on DOS: 03/16/24 TECHNIQUE: CT of the head without intravenous contrast. RADIATION DOSE: CTDIvol: 32.63 mGy, DLP: 608 mGy*cm FINDINGS: There is no intracranial hemorrhage. There is no extra-axial fluid, mass, mass effect or midline shif t. The ventricles are midline and normal in size. Basilar cisterns are patent. There are moderate per iventricular and subcortical white matter chronic microvascular ischemic changes mild global cerebral volume loss. The paranasal sinuses and mastoids are well-pneumatized. Imaged portion of the orbits are unremarkabl e. IMPRESSION: No intracranial hemorrhage or mass effect. Moderate chronic microvascular ischemic changes Mild global cerebral volume loss
[2025-05-19] MEDS: SODIUM CHLORIDE 0.9% 1,000 ML IV SCH (18:32)
[2025-05-19] MEDS: SODIUM ZIRCONIUM CYCL 10 GM PAK PO ONE (18:32)
[2025-05-19 20:00] VITALS: PULSE 52; RESP 10; O2SAT 100
[2025-05-19 21:48] VITALS: BP 109/89; PULSE 63; RESP 18; TEMP 97; O2SAT 97
[2025-05-19] MEDS: ACCU-CHEK COMFORT CURVE STRIP VI SCH (22:00)
[2025-05-19] MEDS: InsuLIN REG 1unit/0.01ml Soln (100units/ml) SC SCH (22:00)
[2025-05-19] MEDS: APIXABAN 5 MG TAB PO SCH (22:49)
[2025-05-19 23:30] VITALS: PULSE 58; RESP 18; O2SAT 90
[2025-05-20] VITALS (8 sets, daily range): BP systolic 151–168; BP diastolic 76–101; PULSE 52–87; RESP 16–19; TEMP 96.8–98.7; O2SAT 90–98
[2025-05-20] MEDS: LEVOTHYROXINE SODIUM 25 MCG TAB PO SCH (06:30)
[2025-05-20 06:57] LABS: Hematocrit 39.5 % (36.0-46.0); Hemoglobin 12.7 g/dL (12.2-16.2); Mean Corpuscular Hemoglobin 30.5 pg (28.0-32.0); Mean Corpuscular Volume 94.4 fL (80.0-100.0); Nucleated Red Blood Cells % 0.1 %
[2025-05-20 07:09] LABS: Alanine Aminotransferase 30 U/L (7-40); Alkaline Phosphatase 97 U/L (46-116); Anion Gap 14 (5-15); Blood Urea Nitrogen 19 mg/dL (9-23); Calcium 9.0 mg/dL (8.7-10.4); Chloride 106 mmol/L (98-107); Glucose 88 mg/dL (74-106); Potassium 4.6 mmol/L (3.5-5.1); Sodium 139 mmol/L (136-145); Total Protein 6.6 g/dL (5.7-8.2)
[2025-05-20 07:10] LABS: Albumin 3.8 g/dL (3.2-4.8); BUN/Creatinine Ratio 12.3 (10.0-20.0); Bilirubin, Total 0.4 mg/dL (0.2-1.0)
[2025-05-20 07:15] LABS: Carbon Dioxide 19 mmol/L (20-31)
--- NOTE | 2025-05-20 07:57 | ECG ---
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
[2025-05-20] MEDS: CHOLECALCIFEROL (VITD3) 1,000UNIT=25mCg TAB PO SCH (10:06)
[2025-05-20] MEDS: FUROSEMIDE 40 MG/4 ML VIAL IV SCH (10:06)
[2025-05-20] MEDS: AMIODARONE HCL 200 MG TAB PO SCH (10:06)
--- NOTE | 2025-05-20 14:56 | DVHPN2 ---
Subjective 80-year-old female with a history of dementia and atrial fibrillation diabetes hypertension chronic kidney disease hypothyroidism was admitted for altered level of consciousness Changes from previous H/P or p: Changes Objective Vitals Vital Signs Date Time Temp Pulse Resp B/P (MAP) Pulse Ox O2 Delivery O2 Flow Rate FiO2 05/20/25 13:27 97.0 56 17 167/101 (123) 91 97.0 05/19/25 23:30 Room Air* 0 21 Intake/Output Intake and Output 05/20/25 07:00 Intake Total 560 ml Output Total 1000 ml Balance -440 ml Intake Oral 560 ml Output Urine Total 1000 ml General Appearance: Alert, Other (Disoriented) Cardiovascular: Regular rate, Normal S1 Abdomen: Normal bowel sounds, Soft, No tenderness Extremities: No edema Medications Current Medications Medications Dose Ordered Sig/Bessy Route Start Time Stop Time Status Last Admin Dose Admin Sodium Chloride 1,000 ml @ 60 mls/hr [id number] IV 05/19/25 17:30 05/19/25 18:32 60 MLS/HR Ondansetron HCl 4 mg Q4HP PRN IV 05/19/25 17:30 Acetaminophen 650 mg Q6HP PRN PO 05/19/25 17:30 Diagnostic Test (Pha) 1 strip ACHS 05/19/25 22:00 05/20/25 11:30 1 STRIP Insulin Human Regular ACHS SC 05/19/25 22:00 05/20/25 12:14 2 UNITS Dextrose 50 ml UD PRN IV 05/19/25 18:00 Sodium Chloride 1,000 ml @ 60 mls/hr [id number] IV 05/19/25 18:00 Cancel Amiodarone HCl 200 mg DAILY PO 05/20/25 10:00 05/20/25 10:06 200 MG Apixaban 5 mg BID PO 05/19/25 22:00 05/20/25 10:07 5 MG Amlodipine Besylate 10 mg DAILYPRN PO 05/20/25 10:00 05/20/25 10:06 10 MG Atorvastatin Calcium 40 mg HS PO 05/20/25 22:00 Cholecalciferol 2,000 unit DAILY PO 05/20/25 10:00 05/20/25 10:06 2,000 UNIT Levothyroxine Sodium 75 mcg QAM@0600 PO 05/20/25 06:00 05/20/25 06:30 75 MCG Furosemide 40 mg DAILY IV 05/20/25 10:00 05/20/25 10:06 40 MG Laboratory Results Laboratory Tests 05/20/25 05:54 Chemistry Test 05/19/25 15:21 05/20/25 05:54 Albumin 3.8 g/dL (3.2-4.8) 3.8 g/dL (3.2-4.8) Calcium Level 9.0 mg/dL (8.7-10.4) 9.0 mg/dL (8.7-10.4) Total Protein 6.5 g/dL (5.7-8.2) 6.6 g/dL (5.7-8.2) LFT Test 05/19/25 15:21 05/20/25 05:54 Alanine Aminotransferase (ALT) 27 U/L (7-40) 30 U/L (7-40) Alkaline Phosphatase 98 U/L (46-116) 97 U/L (46-116) Aspartate Amino Transferase (AST) 33 U/L (13-40) 38 U/L (13-40) Total Bilirubin 0.4 mg/dL (0.2-1.0) 0.4 mg/dL (0.2-1.0) HgA1c, TSH Test 05/19/25 15:21 Hemoglobin A1c 5.6 % A1C (<5.7) Urinalysis Test 05/19/25 17:37 Urine Color Yellow (Yellow) Urine Clarity Clear (Clear) Urine pH 5.5 (5.0-9.0) Urine Specific [place] 1.014 (1.001-1.035) Urine Protein Negative (Negative) Urine Ketones Negative (Negative) Urine Blood Negative /uL (Negative) Urine Nitrite Negative (Negative) Urine Bilirubin Negative (Negative) Urine Urobilinogen Normal mg/dL (Negative) Urine Leukocyte Esterase Negative /uL (Negative) Urine RBC 1 /hpf (0 - 4) Urine Microscopic WBC 2 /HPF (0-5) Urine Squamous Epithelial Cells Few /hpf (<5) Urine Bacteria None seen /hpf (None Seen) Urine Hyaline Casts Few /lpf (0 - 2) Urine Glucose Normal mg/dL (Normal) Assessment/Plan Assessment/Plan Altered level of consciousness Metabolic encephalopathy No UTI 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 Dementia Chronic kidney disease Type 2 diabetes Hypothyroidism Atrial fibrillation no RVR Plan IV fluids normal saline Continue home medications including amiodarone, amlodipine, Eliquis, Lipitor, vitamin D3 Levothyroxine Physical therapy evaluation MRI of the brain Monitor closely Echo Plan discussed with: Patient Date of Service: May 20, 2025 Billing Provider: LUZ MARIA JUÁREZ MD Common Visit Codes: NOT BILLABLE LUZ MARIA JUÁREZ MD May 20, 2025 14:56
[2025-05-20] MEDS: ATORVASTATIN 20 MG TAB PO SCH (21:16)
[2025-05-21] VITALS (7 sets, daily range): BP systolic 111–167; BP diastolic 76–104; PULSE 64–94; RESP 16–18; TEMP 97.1–98.2; O2SAT 92–100
[2025-05-21] MEDS: diphenhdrAMINE HCL 50 MG/1 ML VL IV ONE ×2 (01:00→01:34)
[2025-05-21] MEDS ORDERED: LORazepam 2MG/ML-1ML VIAL IM ONE (08:00)
--- NOTE | 2025-05-21 12:20 | DVHPN2 ---
Subjective No new complaints MRI of the brain and echocardiogram are still pending Changes from previous H/P or p: Changes Objective Vitals Vital Signs Date Time Temp Pulse Resp B/P (MAP) Pulse Ox O2 Delivery O2 Flow Rate FiO2 05/21/25 11:10 150/104 05/21/25 09:01 97.9 69 16 94 97.9 05/20/25 20:00 Room Air* 0 21 Intake/Output Intake and Output 05/21/25 07:00 Intake Total 1050 ml Output Total 2352 ml Balance -1302 ml Intake Oral 1050 ml Output Urine Total 2352 ml General Appearance: Alert, Other (Disoriented) Cardiovascular: Regular rate, Normal S1 Abdomen: Normal bowel sounds, Soft, No tenderness Extremities: No edema Medications Current Medications Medications Dose Ordered Sig/Bessy Route Start Time Stop Time Status Last Admin Dose Admin Ondansetron HCl 4 mg Q4HP PRN IV 05/19/25 17:30 Acetaminophen 650 mg Q6HP PRN PO 05/19/25 17:30 Diagnostic Test (Pha) 1 strip ACHS 05/19/25 22:00 05/21/25 11:43 1 STRIP Insulin Human Regular ACHS SC 05/19/25 22:00 05/21/25 11:55 2 UNITS Dextrose 50 ml UD PRN IV 05/19/25 18:00 Sodium Chloride 1,000 ml @ 60 mls/hr [id number] IV 05/19/25 18:00 Cancel Amiodarone HCl 200 mg DAILY PO 05/20/25 10:00 05/21/25 11:09 200 MG Apixaban 5 mg BID PO 05/19/25 22:00 05/21/25 11:09 5 MG Amlodipine Besylate 10 mg DAILYPRN PO 05/20/25 10:00 05/21/25 11:10 10 MG Atorvastatin Calcium 40 mg HS PO 05/20/25 22:00 05/20/25 21:16 40 MG Cholecalciferol 2,000 unit DAILY PO 05/20/25 10:00 05/21/25 11:09 2,000 UNIT Levothyroxine Sodium 75 mcg QAM@0600 PO 05/20/25 06:00 05/21/25 05:04 75 MCG Furosemide 40 mg DAILY IV 05/20/25 10:00 05/21/25 11:10 40 MG Laboratory Results Laboratory Tests 05/20/25 05:54 Urinalysis Test 05/19/25 17:37 Urine Color Yellow (Yellow) Urine Clarity Clear (Clear) Urine pH 5.5 (5.0-9.0) Urine Specific [place] 1.014 (1.001-1.035) Urine Protein Negative (Negative) Urine Ketones Negative (Negative) Urine Blood Negative /uL (Negative) Urine Nitrite Negative (Negative) Urine Bilirubin Negative (Negative) Urine Urobilinogen Normal mg/dL (Negative) Urine Leukocyte Esterase Negative /uL (Negative) Urine RBC 1 /hpf (0 - 4) Urine Microscopic WBC 2 /HPF (0-5) Urine Squamous Epithelial Cells Few /hpf (<5) Urine Bacteria None seen /hpf (None Seen) Urine Hyaline Casts Few /lpf (0 - 2) Urine Glucose Normal mg/dL (Normal) Assessment/Plan Assessment/Plan Altered level of consciousness Metabolic encephalopathy No UTI 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 Dementia Chronic kidney disease Type 2 diabetes Hypothyroidism Atrial fibrillation no RVR Plan IV fluids normal saline Continue home medications including amiodarone, amlodipine, Eliquis, Lipitor, vitamin D3 Levothyroxine Physical therapy evaluation MRI of the brain Monitor closely Echo 05/21/2025: Get MRI of the brain Echocardiogram Physical therapy Discontinue IV fluids Plan discussed with: Patient My Orders Orders - LUZ MARIA JUÁREZ MD Procedure Category Date Status Time Brain Head Wo Contrast MRI 05/20/25 Logged 14:55 Apply Z-Guard LOI 05/20/25 In Process 11:50 Echo 2d Mode Cardiac US 05/21/25 Logged DOP 14:57 Pt Request For Service PT 05/21/25 Logged 09:15 Date of Service: May 21, 2025 Billing Provider: LUZ MARIA JUÁREZ MD Common Visit Codes: NOT BILLABLE LUZ MARIA JUÁREZ MD May 21, 2025 12:20
[2025-05-21] MEDS: LORazepam 2MG/ML-1ML VIAL IV ONE (12:45)
--- NOTE | 2025-05-21 13:39 | DVH ---
CLINICAL INDICATION: Encephalopathy COMPARISON: CT HEAD WITHOUT CONTRAST on DOS: 05/19/25, CT HEAD WITHOUT CONTRAST on DOS: 03/16/24 TECHNIQUE: Multisequence multiplanar MRI images of the brain were obtained without contrast. Diffusio n-weighted images, ADC maps, and sagittal T1 weighted image were submitted. FINDINGS: Motion limited study. Only diffusion-weighted images, ADC maps, and sagittal T1 sequences were obtained. No acute infarct given the limitations of the examination. No other gross abnormality identified on the sequences obtained. IMPRESSION: 1. Very limited study due to motion artifact. 2. No evidence of acute infarct given the limitations of the examination.
--- NOTE | 2025-05-21 16:52 | DVHSR ---
APPROVED REPORT EXAM: LIMITED Two-dimensional echocardiogram. Blood Pressure: 150/104 mmHg INDICATION Atrial Fibrillation RISK FACTORS Height: 5' , Weight: 97 DIMENSIONS LVDd3.2 (3.8-5.7cm)LA (2D) (1.9-4.0cm)Aortic Root (2.0-3.7cm) LVDs2.6 (2.5-4.0cm)LA (MM) (1.9-4.0cm)Aortic Cusp Exc (1.5-2.0cm) EF (%) 40.0 (55-70%)Rt. Atrium (1.9-4.0cm)Asc. Aorta cm IVSd1.1 (0.7-1.1cm)RV (D) (1.8-2.4cm) PWd1.1 (0.7-1.1cm) Mitral Valve MitralMitral Stenosis E/A ratio0.02D MVAcm2 Other Information Quality : Technically LimitedRhythm : Technically limited study due to body habitus, patient position on right side and patient aloc and v eddie confused. Conclusion MODERATELY CALCIFIED AORTIC LEAFLETS CALCIFIED MITRAL LEAFLETS AND ANNULUS LV EF IS 45% AND IS SLIGHTLY REDUCED NO EFFUSION NORMAL RV FUNCTION TECHNICALLY VERY LIMITED VIEWS
[2025-05-21] MEDS: ACETAMINOPHEN 325 MG TAB PO PRN (23:55)
[2025-05-22] VITALS (7 sets, daily range): BP systolic 115–153; BP diastolic 68–92; PULSE 60–77; RESP 12–18; TEMP 97.2–98.6; O2SAT 90–100
--- NOTE | 2025-05-22 14:09 | DVHPN2 ---
Subjective The only complaint is generalized weakness Changes from previous H/P or p: Changes Objective Vitals Vital Signs Date Time Temp Pulse Resp B/P (MAP) Pulse Ox O2 Delivery O2 Flow Rate FiO2 05/22/25 12:55 97.6 66 18 153/83 (106) 97 97.6 05/21/25 20:00 Room Air* 0 21 Intake/Output Intake and Output 05/22/25 07:00 Intake Total 1275 ml Output Total 800 ml Balance 475 ml Intake Oral 1275 ml Output Urine Total 800 ml General Appearance: Alert, Other (Disoriented) Cardiovascular: Regular rate, Normal S1 Abdomen: Normal bowel sounds, Soft, No tenderness Extremities: No edema Medications Current Medications Medications Dose Ordered Sig/Bessy Route Start Time Stop Time Status Last Admin Dose Admin Ondansetron HCl 4 mg Q4HP PRN IV 05/19/25 17:30 Acetaminophen 650 mg Q6HP PRN PO 05/19/25 17:30 05/21/25 23:55 650 MG Diagnostic Test (Pha) 1 strip ACHS 05/19/25 22:00 05/22/25 11:30 1 STRIP Insulin Human Regular ACHS SC 05/19/25 22:00 05/22/25 13:04 4 UNITS Dextrose 50 ml UD PRN IV 05/19/25 18:00 Sodium Chloride 1,000 ml @ 60 mls/hr [id number] IV 05/19/25 18:00 Cancel Amiodarone HCl 200 mg DAILY PO 05/20/25 10:00 05/22/25 11:04 200 MG Apixaban 5 mg BID PO 05/19/25 22:00 05/22/25 11:04 5 MG Amlodipine Besylate 10 mg DAILYPRN PO 05/20/25 10:00 05/22/25 11:06 10 MG Atorvastatin Calcium 40 mg HS PO 05/20/25 22:00 05/21/25 22:02 40 MG Cholecalciferol 2,000 unit DAILY PO 05/20/25 10:00 05/22/25 11:06 2,000 UNIT Levothyroxine Sodium 75 mcg QAM@0600 PO 05/20/25 06:00 05/22/25 06:17 75 MCG Furosemide 40 mg DAILY IV 05/20/25 10:00 05/22/25 11:04 40 MG Laboratory Results Laboratory Tests 05/20/25 05:54 Urinalysis Test 05/19/25 17:37 Urine Color Yellow (Yellow) Urine Clarity Clear (Clear) Urine pH 5.5 (5.0-9.0) Urine Specific [place] 1.014 (1.001-1.035) Urine Protein Negative (Negative) Urine Ketones Negative (Negative) Urine Blood Negative /uL (Negative) Urine Nitrite Negative (Negative) Urine Bilirubin Negative (Negative) Urine Urobilinogen Normal mg/dL (Negative) Urine Leukocyte Esterase Negative /uL (Negative) Urine RBC 1 /hpf (0 - 4) Urine Microscopic WBC 2 /HPF (0-5) Urine Squamous Epithelial Cells Few /hpf (<5) Urine Bacteria None seen /hpf (None Seen) Urine Hyaline Casts Few /lpf (0 - 2) Urine Glucose Normal mg/dL (Normal) Assessment/Plan Assessment/Plan Altered level of consciousness Metabolic encephalopathy No UTI 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 Dementia Chronic kidney disease Type 2 diabetes Hypothyroidism Atrial fibrillation no RVR Plan IV fluids normal saline Continue home medications including amiodarone, amlodipine, Eliquis, Lipitor, vitamin D3 Levothyroxine Physical therapy evaluation MRI of the brain Monitor closely Echo 05/21/2025: Get MRI of the brain Echocardiogram Physical therapy Discontinue IV fluids 05/22/2025: Acute kidney injury due to vasomotor nephropathy Chronic kidney disease Acute on chronic heart failure with reduced ejection fraction Generalized weakness Debility Atrial fibrillation Hypothyroidism Type 2 diabetes Dementia Plan: I met with the son at the bedside today, he said she has been bed-bound for 2 years She lived with her daughter but the daughter is not able to provide care for the patient Family is interested in place in the patient in rehab or board and care or a some kind of facility Get physical therapy evaluation The rest of the management will depend on the hospital course Plan discussed with: Patient, Son Date of Service: May 22, 2025 Billing Provider: LUZ MARIA JUÁREZ MD Common Visit Codes: NOT BILLABLE LUZ MARIA JUÁREZ MD May 22, 2025 14:09
[2025-05-23] VITALS (8 sets, daily range): BP systolic 83–147; BP diastolic 33–79; PULSE 55–120; RESP 12–18; TEMP 97.4–99.2; O2SAT 93–98
--- NOTE | 2025-05-23 13:30 | DVHDS2 ---
Discharge Summary Date of Admission May 19, 2025 at 17:19 Date of Discharge: May 23, 2025 Labs/Diagnostic Data: Laboratory Results Test 05/23/25 11:37 05/20/25 05:54 05/19/25 18:48 05/19/25 17:37 POC Glucose 126 mg/dl (70-106) White Blood Count 11.3 10^3/uL (4.4-10.8) Red Blood Count 4.18 10^6/uL (4.0-5.20) Hemoglobin 12.7 g/dL (12.2-16.2) Hematocrit 39.5 % (36.0-46.0) Mean Corpuscular Volume 94.4 fL (80.0-100.0) Mean Corpuscular Hemoglobin 30.5 pg (28.0-32.0) Mean Corpuscular Hemoglobin Concent 32.3 g/dL (32.0-36.0) Red Cell Distribution Width 15.2 % (11.8-14.3) Platelet Count 242 10^3/uL (140-450) Mean Platelet Volume 9.1 fL (6.9-10.8) Neutrophils (%) (Auto) 69.8 % (37.0-80.0) Lymphocytes (%) (Auto) 20.8 % (10.0-50.0) Monocytes (%) (Auto) 6.9 % (0.0-12.0) Eosinophils (%) (Auto) 1.3 % (0.0-7.0) Basophils (%) (Auto) 1.2 % (0.0-2.0) Neutrophils # (Auto) 7.9 10 ^3/uL (1.6-8.6) Lymphocytes # (Auto) 2.3 10 ^3/uL (0.4-5.4) Monocytes # (Auto) 0.8 10 ^3/uL (0-1.3) Eosinophils # (Auto) 0.1 10 ^3/uL (0-0.8) Basophils # (Auto) 0.1 10 ^3/uL (0-0.2) Nucleated Red Blood Cells 0.1 % Sodium Level 139 mmol/L (136-145) Potassium Level 4.6 mmol/L (3.5-5.1) Chloride Level 106 mmol/L (98-107) Carbon Dioxide Level 19 mmol/L (20-31) Anion Gap 14 (5-15) Blood Urea Nitrogen 19 mg/dL (9-23) Creatinine 1.54 mg/dL (0.550-1.02) Glomerular Filtration Rate Calc 34 mL/min (>90) BUN/Creatinine Ratio 12.3 (10.0-20.0) Serum Glucose 88 mg/dL (74-106) Calcium Level 9.0 mg/dL (8.7-10.4) Total Bilirubin 0.4 mg/dL (0.2-1.0) Aspartate Amino Transferase (AST) 38 U/L (13-40) Alanine Aminotransferase (ALT) 30 U/L (7-40) Alkaline Phosphatase 97 U/L (46-116) Total Protein 6.6 g/dL (5.7-8.2) Albumin 3.8 g/dL (3.2-4.8) Ammonia < 10 umol/L (11-32) Troponin I High Sensitivity 8 ng/L (</=34) Urine Color Yellow (Yellow) Urine Clarity Clear (Clear) Urine pH 5.5 (5.0-9.0) Urine Specific [place] 1.014 (1.001-1.035) Urine Protein Negative (Negative) Urine Ketones Negative (Negative) Urine Blood Negative /uL (Negative) Urine Nitrite Negative (Negative) Urine Bilirubin Negative (Negative) Urine Urobilinogen Normal mg/dL (Negative) Urine Leukocyte Esterase Negative /uL (Negative) Urine RBC 1 /hpf (0 - 4) Urine Microscopic WBC 2 /HPF (0-5) Urine Squamous Epithelial Cells Few /hpf (<5) Urine Bacteria None seen /hpf (None Seen) Urine Hyaline Casts Few /lpf (0 - 2) Urine Glucose Normal mg/dL (Normal) Urine Opiates Screen Neg (NEGATIVE) Urine Fentanyl Screen Neg (NEGATIVE) Urine Barbiturates Screen Neg (NEGATIVE) Urine Phencyclidine Screen Neg (NEGATIVE) Urine Amphetamines Screen Neg (NEGATIVE) Urine Benzodiazepines Screen Neg (NEGATIVE) Urine Cocaine Screen Neg (NEGATIVE) Urine Cannabinoids Screen Neg (NEGATIVE) Test 05/19/25 15:21 Hemoglobin A1c 5.6 % A1C (<5.7) Lactic Acid Level 1.4 mmol/L (0.4-2.0) Other Laboratory Tests 05/20/25 05:54 Brief Hx & Hospital Course: Final diagnoses: Altered level of consciousness Metabolic encephalopathy No UTI 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 Dementia Chronic kidney disease Type 2 diabetes Hypothyroidism Atrial fibrillation no RVR 80-year-old female who was admitted for altered level of consciousness and weakness Workup showed no UTI CT scan of the head and MRI showed no stroke Overall she remained stable Her dehydration and acute kidney injury was treated with IV fluids which improved it somewhat She has chronic kidney disease but it is stable We had several discussions with her family about her home situation, apparently she lives with her daughter but her son and her brother do not think that she is a reasonable or capable of taking care of her anymore and therefore they would like to move her somewhere else We attempted physical therapy but it was not possible since the patient has been bed-bound for 2 years She is maximum assist She has [id number] dementia but he is pleasant and cooperative but very weak Today her brother came from out of state and he is going to assume her care and he wants to move her to a board and care facility or to assisted living away from her daughter We explained to him that she is not a candidate for a assisted facility due to the fact that she is bed-bound The patient can go to a board and care and we can order home safety evaluation at home once a home or a facility is found for her Consult social media content manager to assist the family with placement She can be discharged whenever placement is arranged Condition at Discharge: Stable Final Diagnosis/Problems List Altered level of consciousness Metabolic encephalopathy No UTI 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 Dementia Chronic kidney disease Type 2 diabetes Hypothyroidism Atrial fibrillation no RVR Discharge Disposition: Home SNF Discharge Will this Physician continue t: No Discharge Instruct/Medications Scheduled Amiodarone Hcl (Amiodarone Hcl), 1 TAB PO DAILY, (Reported) Amlodipine Besylate (Amlodipine Besylate), 1 TAB PO DAILYPRN, (Reported) Apixaban Base (Eliquis), 5 MG PO BID, (Reported) Atorvastatin Calcium (Lipitor), 1 TAB PO DAILY, (Reported) Cholecalciferol (Vitamin D3), 1 TAB PO DAILY, (Reported) Ciprofloxacin Hcl (Ciprofloxacin Hcl), 1 TAB PO BID, (Reported) Furosemide (Furosemide), 40 MG PO daily with potassium, (Reported) Gabapentin (Gabapentin), 1 CAP PO TID, (Reported) Glimepiride (Glimepiride), 1 TAB PO DAILY, (Reported) Levothyroxine Sodium (Levothyroxine Sodium), 1 TAB PO DAILY, (Reported) Metformin Hydrochloride (Metformin Hcl), 1 TAB PO BID, (Reported) Oxybutynin Chloride (Oxybutynin Chloride), 5 MG PO DAILY, (Reported) Pioglitazone Hydrochloride (Actos Tablet), 1 TAB PO DAILY, (Reported) Potassium Chloride (Potassium Chloride ER), 20 MEQ PO morning with lasix, (Reported) Quetiapine Fumerate (Quetiapine Fumarate), 25 MG PO DAILY, (Reported) Senna (Senna Laxative), 8.6 MG PO BID, (Reported) Sitagliptin Phosphate (Januvia), 1 TAB PO DAILYPRN, (Reported) Venlafaxine Hcl (Venlafaxine Hcl Er), 1 CAP PO DAILYPRN, (Reported) Venlafaxine Hcl (Venlafaxine Hcl Er), 1 CAP PO DAILYPRN, (Reported) Scheduled PRN Meloxicam (Meloxicam), 1 TAB PO DAILYP PRN for PAIN SCALE 1 THRU 6, (Reported) Miscellaneous Medications Acetaminophen (Tylenol), 325 MG PO, (Reported) Acetaminophen (Tylenol), 650 MG RI, (Reported) Dimethyl Fumarate (Dimethyl Fumarate), 120 MG PO, (Reported) Hydrochlorothiazide (Hydrochlorothiazide), PO, (Reported) Hydrocodone-Acetaminophen (Hydrocodone/Acetaminophen 10-325 mg), (Reported) Hydroxyzine Hcl (Hydroxyzine Hcl), 25 MG PO, (Reported) Simvastatin (Simvastatin), 1 TAB PO, (Reported) Discharge Statement: "Patient was advised to return to the ER or call 911 if any headaches, dizziness, shortness of breath, chest pain, abdominal pain, bleeding, fevers, or worsening of medical condition. Patient was counseled about treatment plan, medications, possible side effects, patientverbalized understanding. All questions were answered to the best of my ability. This discharge took greater then 30 minutes in planning, reviewing documentation, counseling the patient, and discussing with other team members." ASSESSMENT ASSESSMENT Assessment Date of Service: May 23, 2025 Billing Provider: LUZ MARIA JUÁREZ MD Common Visit Codes: NOT BILLABLE LUZ MARIA JUÁREZ MD May 23, 2025 13:30
[2025-05-24] VITALS (7 sets, daily range): BP systolic 117–146; BP diastolic 50–70; PULSE 57–65; RESP 14–18; TEMP 97.2–98.7; O2SAT 96–99
--- NOTE | 2025-05-24 08:34 | DVHPN2 ---
Subjective No new complaints Changes from previous H/P or p: Changes Objective Vitals Vital Signs Date Time Temp Pulse Resp B/P (MAP) Pulse Ox O2 Delivery O2 Flow Rate FiO2 05/24/25 04:34 98.4 64 16 128/64 (85) 96 98.4 05/23/25 20:00 Room Air* 0 21 Intake/Output Intake and Output 05/24/25 07:00 Intake Total 1200 ml Output Total 750 ml Balance 450 ml Intake Oral 1200 ml Output Urine Total 750 ml General Appearance: Alert, Other (Disoriented) Cardiovascular: Regular rate, Normal S1 Abdomen: Normal bowel sounds, Soft, No tenderness Extremities: No edema Medications Current Medications Medications Dose Ordered Sig/Bessy Route Start Time Stop Time Status Last Admin Dose Admin Ondansetron HCl 4 mg Q4HP PRN IV 05/19/25 17:30 Acetaminophen 650 mg Q6HP PRN PO 05/19/25 17:30 05/24/25 06:24 650 MG Diagnostic Test (Pha) 1 strip ACHS 05/19/25 22:00 05/24/25 06:01 1 STRIP Insulin Human Regular ACHS SC 05/19/25 22:00 05/24/25 06:01 2 UNITS Dextrose 50 ml UD PRN IV 05/19/25 18:00 Sodium Chloride 1,000 ml @ 60 mls/hr [id number] IV 05/19/25 18:00 Cancel Amiodarone HCl 200 mg DAILY PO 05/20/25 10:00 05/22/25 11:04 200 MG Apixaban 5 mg BID PO 05/19/25 22:00 05/23/25 21:25 5 MG Amlodipine Besylate 10 mg DAILYPRN PO 05/20/25 10:00 05/22/25 11:06 10 MG Atorvastatin Calcium 40 mg HS PO 05/20/25 22:00 05/23/25 21:26 40 MG Cholecalciferol 2,000 unit DAILY PO 05/20/25 10:00 05/23/25 09:46 2,000 UNIT Levothyroxine Sodium 75 mcg QAM@0600 PO 05/20/25 06:00 05/24/25 06:21 75 MCG Furosemide 40 mg DAILY IV 05/20/25 10:00 05/22/25 11:04 40 MG Laboratory Results Laboratory Tests 05/20/25 05:54 Urinalysis Test 05/19/25 17:37 Urine Color Yellow (Yellow) Urine Clarity Clear (Clear) Urine pH 5.5 (5.0-9.0) Urine Specific [place] 1.014 (1.001-1.035) Urine Protein Negative (Negative) Urine Ketones Negative (Negative) Urine Blood Negative /uL (Negative) Urine Nitrite Negative (Negative) Urine Bilirubin Negative (Negative) Urine Urobilinogen Normal mg/dL (Negative) Urine Leukocyte Esterase Negative /uL (Negative) Urine RBC 1 /hpf (0 - 4) Urine Microscopic WBC 2 /HPF (0-5) Urine Squamous Epithelial Cells Few /hpf (<5) Urine Bacteria None seen /hpf (None Seen) Urine Hyaline Casts Few /lpf (0 - 2) Urine Glucose Normal mg/dL (Normal) Assessment/Plan Assessment/Plan Altered level of consciousness Metabolic encephalopathy No UTI 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 Dementia Chronic kidney disease Type 2 diabetes Hypothyroidism Atrial fibrillation no RVR Plan IV fluids normal saline Continue home medications including amiodarone, amlodipine, Eliquis, Lipitor, vitamin D3 Levothyroxine Physical therapy evaluation MRI of the brain Monitor closely Echo 05/21/2025: Get MRI of the brain Echocardiogram Physical therapy Discontinue IV fluids 05/22/2025: Acute kidney injury due to vasomotor nephropathy Chronic kidney disease Acute on chronic heart failure with reduced ejection fraction Generalized weakness Debility Atrial fibrillation Hypothyroidism Type 2 diabetes Dementia Plan: I met with the son at the bedside today, he said she has been bed-bound for 2 years She lived with her daughter but the daughter is not able to provide care for the patient Family is interested in place in the patient in rehab or board and care or a some kind of facility Get physical therapy evaluation The rest of the management will depend on the hospital course 05/24/25: Weakness Dementia CKD Afib Patient needs a board and longterm Daughter is not able to take care of her anymore DC once placement is done Does not qualify for SNF since she has been bed ridden x 2 years Plan discussed with: Daughter, Son My Orders Orders - LUZ MARIA JUÁREZ MD Procedure Category Date Status Time * Track Walker CONS 05/23/25 Transmitted Consult Discharge DISCHARGE 05/23/25 Transmitted 13:29 Date of Service: May 24, 2025 Billing Provider: LUZ MARIA JUÁREZ MD Common Visit Codes: NOT BILLABLE LUZ MARIA JUÁREZ MD May 24, 2025 08:34
[2025-05-25 00:59] VITALS: BP 122/57; PULSE 91; RESP 18; TEMP 97.9; O2SAT 97
[2025-05-25 05:00] VITALS: BP 137/60; PULSE 64; RESP 17; TEMP 98; O2SAT 98
[2025-05-25 06:27] LABS: Chloride 100 mmol/L (98-107); Hematocrit 40.3 % (36.0-46.0); Hemoglobin 13.4 g/dL (12.2-16.2); Mean Corpuscular Hemoglobin 31.0 pg (28.0-32.0); Mean Corpuscular Volume 93.0 fL (80.0-100.0); Nucleated Red Blood Cells % 0.0 %; Sodium 139 mmol/L (136-145)
[2025-05-25 06:28] LABS: Anion Gap 13 (5-15); Calcium 8.8 mg/dL (8.7-10.4); Carbon Dioxide 26 mmol/L (20-31)
[2025-05-25 06:31] LABS: Potassium 3.3 mmol/L (3.5-5.1)
[2025-05-25 06:33] LABS: BUN/Creatinine Ratio 23.4 (10.0-20.0)
[2025-05-25 06:34] LABS: Magnesium 1.6 mg/dL (1.6-2.6)
[2025-05-25 06:35] LABS: Blood Urea Nitrogen 33 mg/dL (9-23); Glucose 135 mg/dL (74-106)
[2025-05-25 09:00] VITALS: BP 126/71; PULSE 61; RESP 15; TEMP 97.8; O2SAT 98
--- NOTE | 2025-05-25 10:27 | DVHPN2 ---
Subjective Complains of constipation Changes from previous H/P or p: Changes Objective Vitals Vital Signs Date Time Temp Pulse Resp B/P (MAP) Pulse Ox O2 Delivery O2 Flow Rate FiO2 05/25/25 09:00 97.8 61 15 126/71 (89) 98 97.8 05/24/25 20:00 Room Air* 0 21 Intake/Output Intake and Output 05/25/25 07:00 Intake Total 400 ml Output Total 600 ml Balance -200 ml Intake Oral 400 ml Output Urine Total 600 ml # Voids 2 General Appearance: Alert, Other (Disoriented) Cardiovascular: Regular rate, Normal S1 Abdomen: Normal bowel sounds, Soft, No tenderness Extremities: No edema Medications Current Medications Medications Dose Ordered Sig/Bessy Route Start Time Stop Time Status Last Admin Dose Admin Ondansetron HCl 4 mg Q4HP PRN IV 05/19/25 17:30 Acetaminophen 650 mg Q6HP PRN PO 05/19/25 17:30 05/24/25 15:40 650 MG Diagnostic Test (Pha) 1 strip ACHS 05/19/25 22:00 05/25/25 05:25 1 STRIP Insulin Human Regular ACHS SC 05/19/25 22:00 05/25/25 05:30 2 UNITS Dextrose 50 ml UD PRN IV 05/19/25 18:00 Sodium Chloride 1,000 ml @ 60 mls/hr [id number] IV 05/19/25 18:00 Cancel Amiodarone HCl 200 mg DAILY PO 05/20/25 10:00 05/24/25 09:42 200 MG Apixaban 5 mg BID PO 05/19/25 22:00 05/24/25 22:08 5 MG Amlodipine Besylate 10 mg DAILYPRN PO 05/20/25 10:00 05/24/25 09:43 10 MG Atorvastatin Calcium 40 mg HS PO 05/20/25 22:00 05/24/25 22:08 40 MG Cholecalciferol 2,000 unit DAILY PO 05/20/25 10:00 05/24/25 09:42 2,000 UNIT Levothyroxine Sodium 75 mcg QAM@0600 PO 05/20/25 06:00 05/25/25 05:21 75 MCG Furosemide 40 mg DAILY IV 05/20/25 10:00 05/24/25 09:42 40 MG Laboratory Results Laboratory Tests 05/25/25 05:46 Chemistry Test 05/25/25 05:46 Calcium Level 8.8 mg/dL (8.7-10.4) Magnesium Level 1.6 mg/dL (1.6-2.6) Urinalysis Test 05/19/25 17:37 Urine Color Yellow (Yellow) Urine Clarity Clear (Clear) Urine pH 5.5 (5.0-9.0) Urine Specific [place] 1.014 (1.001-1.035) Urine Protein Negative (Negative) Urine Ketones Negative (Negative) Urine Blood Negative /uL (Negative) Urine Nitrite Negative (Negative) Urine Bilirubin Negative (Negative) Urine Urobilinogen Normal mg/dL (Negative) Urine Leukocyte Esterase Negative /uL (Negative) Urine RBC 1 /hpf (0 - 4) Urine Microscopic WBC 2 /HPF (0-5) Urine Squamous Epithelial Cells Few /hpf (<5) Urine Bacteria None seen /hpf (None Seen) Urine Hyaline Casts Few /lpf (0 - 2) Urine Glucose Normal mg/dL (Normal) Assessment/Plan Assessment/Plan Altered level of consciousness Metabolic encephalopathy No UTI 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 Dementia Chronic kidney disease Type 2 diabetes Hypothyroidism Atrial fibrillation no RVR Plan IV fluids normal saline Continue home medications including amiodarone, amlodipine, Eliquis, Lipitor, vitamin D3 Levothyroxine Physical therapy evaluation MRI of the brain Monitor closely Echo 05/21/2025: Get MRI of the brain Echocardiogram Physical therapy Discontinue IV fluids 05/22/2025: Acute kidney injury due to vasomotor nephropathy Chronic kidney disease Acute on chronic heart failure with reduced ejection fraction Generalized weakness Debility Atrial fibrillation Hypothyroidism Type 2 diabetes Dementia Plan: I met with the son at the bedside today, he said she has been bed-bound for 2 years She lived with her daughter but the daughter is not able to provide care for the patient Family is interested in place in the patient in rehab or board and care or a some kind of facility Get physical therapy evaluation The rest of the management will depend on the hospital course 05/24/25: Weakness Dementia CKD Afib Patient needs a board and detention Daughter is not able to take care of her anymore DC once placement is done Does not qualify for SNF since she has been bed ridden x 2 years 05/25/2025: Constipation: Give lactulose Generalized weakness Dementia CKD Atrial fibrillation Discharge to penitentiary care or board and care once arrangements are done Plan discussed with: Patient, Son Date of Service: May 25, 2025 Billing Provider: LUZ MARIA JUÁREZ MD Common Visit Codes: NOT BILLABLE LUZ MARIA JUÁREZ MD May 25, 2025 10:27
[2025-05-25] MEDS: POTASSIUM CHL 20 Meq TABLET PO ONE (10:48)
[2025-05-25] MEDS: LACTULOSE 20Gm/30ML SOLN PO ONE (11:10)
[2025-05-25 13:00] VITALS: BP 127/62; PULSE 59; RESP 15; TEMP 97.5; O2SAT 100
[2025-05-25 17:00] VITALS: BP 127/65; PULSE 61; RESP 15; TEMP 97.8; O2SAT 95
[2025-05-25 21:00] VITALS: BP 125/63; PULSE 72; RESP 16; TEMP 97.7; O2SAT 94
[2025-05-26 01:00] VITALS: BP 142/68; PULSE 64; RESP 17; TEMP 97.9; O2SAT 98
[2025-05-26 09:00] VITALS: BP 132/80; PULSE 74; RESP 17; TEMP 97.9; O2SAT 93
[2025-05-26] MEDS ORDERED: LACTULOSE 20Gm/30ML SOLN PO PRN (10:00)
--- NOTE | 2025-05-26 12:59 | DVHPN2 ---
Subjective Doing well No new complaints Awaiting for placement Changes from previous H/P or p: Changes Objective Vitals Vital Signs Date Time Temp Pulse Resp B/P (MAP) Pulse Ox O2 Delivery O2 Flow Rate FiO2 05/26/25 10:55 132/80 05/26/25 01:00 97.9 64 17 98 97.9 05/25/25 19:42 Room Air* 0 21 Intake/Output Intake and Output 05/26/25 07:00 Intake Total 640 ml Output Total 1200 ml Balance -560 ml Intake Oral 640 ml Output Urine Total 1200 ml General Appearance: Alert, Other (Disoriented) Cardiovascular: Regular rate, Normal S1 Abdomen: Normal bowel sounds, Soft, No tenderness Extremities: No edema Medications Current Medications Medications Dose Ordered Sig/Bessy Route Start Time Stop Time Status Last Admin Dose Admin Ondansetron HCl 4 mg Q4HP PRN IV 05/19/25 17:30 Acetaminophen 650 mg Q6HP PRN PO 05/19/25 17:30 05/26/25 10:56 650 MG Diagnostic Test (Pha) 1 strip ACHS 05/19/25 22:00 05/26/25 11:55 1 STRIP Insulin Human Regular ACHS SC 05/19/25 22:00 05/26/25 11:59 4 UNITS Dextrose 50 ml UD PRN IV 05/19/25 18:00 Sodium Chloride 1,000 ml @ 60 mls/hr [id number] IV 05/19/25 18:00 Cancel Amiodarone HCl 200 mg DAILY PO 05/20/25 10:00 05/26/25 10:55 200 MG Apixaban 5 mg BID PO 05/19/25 22:00 05/26/25 10:56 5 MG Amlodipine Besylate 10 mg DAILYPRN PO 05/20/25 10:00 05/26/25 10:55 10 MG Atorvastatin Calcium 40 mg HS PO 05/20/25 22:00 05/26/25 01:03 40 MG Cholecalciferol 2,000 unit DAILY PO 05/20/25 10:00 05/26/25 10:56 2,000 UNIT Levothyroxine Sodium 75 mcg QAM@0600 PO 05/20/25 06:00 05/26/25 05:24 75 MCG Furosemide 40 mg DAILY IV 05/20/25 10:00 05/26/25 10:53 40 MG Lactulose 30 ml DAILYPRN PRN PO 05/26/25 10:00 Laboratory Results Laboratory Tests 05/25/25 05:46 Urinalysis Test 05/19/25 17:37 Urine Color Yellow (Yellow) Urine Clarity Clear (Clear) Urine pH 5.5 (5.0-9.0) Urine Specific [place] 1.014 (1.001-1.035) Urine Protein Negative (Negative) Urine Ketones Negative (Negative) Urine Blood Negative /uL (Negative) Urine Nitrite Negative (Negative) Urine Bilirubin Negative (Negative) Urine Urobilinogen Normal mg/dL (Negative) Urine Leukocyte Esterase Negative /uL (Negative) Urine RBC 1 /hpf (0 - 4) Urine Microscopic WBC 2 /HPF (0-5) Urine Squamous Epithelial Cells Few /hpf (<5) Urine Bacteria None seen /hpf (None Seen) Urine Hyaline Casts Few /lpf (0 - 2) Urine Glucose Normal mg/dL (Normal) Assessment/Plan Assessment/Plan Altered level of consciousness Metabolic encephalopathy No UTI 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 Dementia Chronic kidney disease Type 2 diabetes Hypothyroidism Atrial fibrillation no RVR Plan IV fluids normal saline Continue home medications including amiodarone, amlodipine, Eliquis, Lipitor, vitamin D3 Levothyroxine Physical therapy evaluation MRI of the brain Monitor closely Echo 05/21/2025: Get MRI of the brain Echocardiogram Physical therapy Discontinue IV fluids 05/22/2025: Acute kidney injury due to vasomotor nephropathy Chronic kidney disease Acute on chronic heart failure with reduced ejection fraction Generalized weakness Debility Atrial fibrillation Hypothyroidism Type 2 diabetes Dementia Plan: I met with the son at the bedside today, he said she has been bed-bound for 2 years She lived with her daughter but the daughter is not able to provide care for the patient Family is interested in place in the patient in rehab or board and care or a some kind of facility Get physical therapy evaluation The rest of the management will depend on the hospital course 05/24/25: Weakness Dementia CKD Afib Patient needs a board and [facility] Daughter is not able to take care of her anymore DC once placement is done Does not qualify for SNF since she has been bed ridden x 2 years 05/25/2025: Constipation: Give lactulose Generalized weakness Dementia CKD Atrial fibrillation Discharge to snf care or board and care once arrangements are done 05/26/2025: Continue current management pending placement Plan discussed with: Other Date of Service: May 26, 2025 Billing Provider: LUZ MARIA JUÁREZ MD Common Visit Codes: NOT BILLABLE LUZ MARIA JUÁREZ MD May 26, 2025 12:59
[2025-05-26 13:00] VITALS: BP 123/61; PULSE 66; RESP 18; TEMP 97.9; O2SAT 98
[2025-05-26 16:50] VITALS: BP 122/52; PULSE 66; RESP 17; TEMP 98; O2SAT 97
== END 2025-05-26 18:59 | disposition home or self-care (01) | DRG 682 ==
LOC: EDBD 14:09 → ER 14:09 → EDUNIT# 14:09 → OVERFLOW 17:19 → WEST WING 21:48
PROVIDERS: ADMIT Internal Medicine Geriatric Medicine; ATTEND Internal Medicine Geriatric Medicine
DX: N17.0 Acute kidney failure with tubular necrosis (principal); G93.41 Metabolic encephalopathy; E87.5 Hyperkalemia; I48.91 Unspecified atrial fibrillation; N18.9 Chronic kidney disease, unspecified; E03.9 Hypothyroidism, unspecified; E11.22 Type 2 diabetes mellitus with diabetic chronic kidney disease; E78.5 Hyperlipidemia, unspecified; E86.0 Dehydration; F03.B0 Unspecified dementia, moderate, without behavioral disturbance, psychotic disturbance, mood disturbance, and anxiety; I25.2 Old myocardial infarction; Z74.01 Bed confinement status; Z90.49 Acquired absence of other specified parts of digestive tract; Z90.710 Acquired absence of both cervix and uterus; Z79.899 Other long term (current) drug therapy; I12.9 Hypertensive chronic kidney disease with stage 1 through stage 4 chronic kidney disease, or unspecified chronic kidney disease
CPT/HCPCS: 36415; 70450; 70551; 71045; 80048; 80053; 80307; 81001; 82140; 82962; 83036; 83605; 83735; 84484; 85025; 92610; 93005; 93306; 96360; 96361; 97110; 97163; 97530; G0378; J1815